=== PATIENT | male | born 1945 | race Asian ===

== ENCOUNTER 2022-08-21 23:35 | Inpatient (IN) | payer OTHER, MEDICAID ==
[~2022-08-21] VITALS: Ht 172.7 cm; Wt 61.2 kg
[2022-08-21 23:41] VITALS: BP 112/66
--- NOTE | 2022-08-21 23:43 | NUR ---
Patient taken to bed 1.
--- NOTE | 2022-08-21 23:55 | NUR ---
Dr. Reed examining patient.
[2022-08-22] MEDS ORDERED: NACL 0.9% 1,000 ML IV ONE
[2022-08-22] MEDS ORDERED: ACETAMINOPHEN EXTRA STRENGTH 500 MG TAB PO ONE
[2022-08-22] MEDS ORDERED: MAGN400S60 PO (00:07)
[2022-08-22] MEDS ORDERED: [UNRECOGNIZED DRUG - CODE] PO (00:07)
[2022-08-22] MEDS ORDERED: DOCU-299 PO (00:07)
[2022-08-22] MEDS ORDERED: BENA20TA PO (00:07)
[2022-08-22] MEDS ORDERED: METO25TA PO (00:07)
[2022-08-22] MEDS ORDERED: METO25TE2 PO (00:07)
[2022-08-22] MEDS ORDERED: BISA-213 RC (00:07)
[2022-08-22] MEDS ORDERED: GEMF600T5 PO (00:07)
[2022-08-22] MEDS ORDERED: HYDR25TA32 PO (00:07)
[2022-08-22 00:17] LABS: BASOPHILS % (AUTO) 0.3 % (0.0-2.0); EOSINOPHILS % (AUTO) 0.6 % (0.0-4.0); HEMATOCRIT 44.9 % (36-52); HEMOGLOBIN 15.2 g/dL (12.0-18.0); LYMPHOCYTES # (AUTO) 1.2 K/uL (2.0-11.5); MEAN CORPUSCULAR HEMOGLOBIN 34 pg (27-31); MEAN CORPUSCULAR HGB CONC 34 g/dL (33-37); MEAN CORPUSCULAR VOLUME 101.7 fL (80-94); MONOCYTES # (AUTO) 0.7 K/uL (0.8-1.0); MONOCYTES % (AUTO) 10.2 % (1.7-9.3); NEUTROPHILS # (AUTO) 5.2 K/uL (1.8-7.7); NEUTROPHILS % (AUTO) 71.9 % (42.2-75.2); PLATELET COUNT (AUTO) 238 K/uL (140-450); RED BLOOD CELL COUNT(AUTO) 4.42 MIL/uL (4.20-6.10); RED CELL DISTRIBUTION WIDTH 13.7 % (11.6-13.7); WHITE BLOOD COUNT (AUTO) 7.3 K/uL (4.8-10.8)
[2022-08-22 00:20] LABS: APPEARANCE,URINE CLEAR (CLEAR); BILIRUBIN,URINE NEGATIVE (NEGATIVE); BLOOD, URINE 1+ (NEGATIVE); COLOR,URINE YELLOW (YELLOW); LEUKOCYTE ESTERASE ,URINE 1+ (NEGATIVE); NITRITE, URINE NEGATIVE (NEGATIVE); PH,URINE 5.5 (5.0-9.0); UGLUCOSE NEGATIVE (NEGATIVE)
--- NOTE | 2022-08-22 00:22 | NUR ---
PT IS KHMER AND NEPALI SPEAKER. HE IS AWKE AND ALERT COMPLANING PAIN IN SUPRABIC AREA. 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 ROOM AND ABLE TO MOVE WITH WALKER. PT HAS A CRUZ
[2022-08-22 00:35] LABS: ALBUMIN 3.7 g/dL (3.4-5.0); ANION GAP 12.8 (8-16); ASPARTATE AMINOTRANSFERASE 17 U/L (15-37); CARBON DIOXIDE 31.1 mmol/L (21-32); CHLORIDE 97 mmol/L (98-107); GLUCOSE 98 mg/dL (74-106); LIPASE 245 U/L (73-393); POTASSIUM 3.9 mmol/L (3.5-5.1); SODIUM SERUM 137 mmol/L (136-145); TOTAL BILIRUBIN 0.8 mg/dL (0.0-1.0); UREA NITROGEN, BLOOD 33 mg/dL (7-18)
[2022-08-22] MEDS ORDERED: cefTRIAXone 1,000 MG VIAL ONE (00:45)
--- NOTE | 2022-08-22 03:00 | NUR ---
CHANGED AND CLEANED THE PATIENT. NO WOUND IS NOTED.
[2022-08-22 04:25] VITALS: BP 129/81
--- NOTE | 2022-08-22 04:32 | NUR ---
Patient will be admitted to care of [facility]. Admited to [facility]. Will go to room 105. Belongings list completed. Report to RG RIBERA.
--- NOTE | 2022-08-22 04:40 | NUR ---
RECEIVED REPORT FROM ER NURSE EDGAR. PT ARRIVED VIA GURNEY. PT AWAKE, ALERT AND ORIENTED X 3. INDONESIAN SPEAKING, CAN SPEAK AND UNDERSTAND JAPANESE.PT ON ROOM AIR, BREATHING EQUAL AND UNLABORED. NO COMPLAINS OF PAIN. SUPRAPUBIC CATHETER IN PLACE, DRAINING CLEAR YELLOW URINE. SKIN IS INTACT. MRSA SWAB DONE. ORIENTED TO CALL LIGHT.ALL PRECAUTIONS IN PLACE. CALL LIGHT WITHIN REACH. WILL CONTINUE TO MONITOR.
[2022-08-22] MEDS ORDERED: MORPHINE SULFATE 2 MG/ML SYR IVP PRN ×2 (04:50→07:30)
--- NOTE | 2022-08-22 07:03 | NUR ---
PT IS STABLE. NO ACUTE EVENTS THROUGHOUT THE NIGHT.ALL NEEDS ATTENDED. NO S/SX OF DISTRESS NOTED.ALL PRECAUTIONS IN PLACE. CALL LIGHT WITHIN REACH. WILL ENDORSE TO DAY SHIFT RN.
--- NOTE | 2022-08-22 07:10 | NUR ---
RECEIVED PT FROM SUPERVISOR LENS GENERATING NURSE FOR CONTINUITY OF CARE. PT IN BED ASLEEP. VISIBLE CHEST RISE AND FALL. RESPIRATIONS EVEN AND UNLABORED. NO DISTRESS NOTED. SUPRAPUBIC CATH IN PLACE DRAINING. IV ON R F/A 20G. CALL LIGHT WITHIN REACH. ALL SAFETY PRECAUTIONS IN PLACE.
[2022-08-22] MEDS ORDERED: LORazepam 2 MG/ML VIAL IVP PRN (07:30)
[2022-08-22] MEDS ORDERED: MAG SULF 2000 MG/WATER PREMIX 50 ML IV PRN (07:30)
[2022-08-22] MEDS ORDERED: DOCUSATE SODIUM 100 MG GELCAP PO PRN (07:30)
[2022-08-22] MEDS ORDERED: ONDANSETRON 4 MG/2 ML VIAL IVP PRN (07:30)
[2022-08-22] MEDS ORDERED: ACETAMINOPHEN 325 MG TAB PO PRN (07:30)
[2022-08-22] MEDS ORDERED: POTASSIUM CHLORIDE 10 MEQ TABER PO PRN (07:30)
[2022-08-22] MEDS ORDERED: ZOLPIDEM 10 MG TAB PO PRN (07:30)
[2022-08-22 08:00] VITALS: BP 115/74
[2022-08-22] MEDS: DOCUSATE SODIUM 100 MG GELCAP PO SCH ×3 (09:00→20:47)
[2022-08-22] MEDS ORDERED: METOPROLOL 25 MG TAB PO SCH (09:00)
[2022-08-22] MEDS: hydroCHLOROthiazide 25 MG TAB PO SCH (09:25)
--- NOTE | 2022-08-22 10:00 | NUR ---
PATIENT HAS BEEN SCREENED AND CATEGORIZED LOW NUTRITION RISK. PATIENT WILL BE SEEN WITHIN 7 DAYS OF ADMISSION. 08/22/22-08/29/[address]
--- NOTE | 2022-08-22 11:43 | NUR ---
MAKING ROUNDS. PT IN BED AWAKE. NURSE ASSISTED PT TO REPOSITION.
[2022-08-22 16:00] VITALS: BP 121/70
--- NOTE | 2022-08-22 18:55 | NUR ---
CALLED [facility] SPOKE TO HOLDEN RIBERA. I EXPLAINED THAT PT WANTS TO TAKE HIS CARBIDOPA LEVODOPA MEDICATION AND HOW [facility] DOES NOT CARRY CARBIDOPA LEVODOPA 25/ 250 MG. EXPLAINED THAT PT BRAD, FAMILY FRIEND "APOLLO" IS ABLE TO [place] [facility] MEDICATION FROM HIS FACILITY AND BRING TO PATIENT HERE.
--- NOTE | 2022-08-22 19:17 | NUR ---
ENDORSED PT TO PRODUCTION SUPERVISOR OFF SHIFT NURSE FOR CONTINUITY OF CARE. PT IN STABLE CONDITION.
--- NOTE | 2022-08-22 19:20 | NUR ---
RECEIVED PT SLEEPING, OPEN EYES TO TOUCH, AAOX3, ABLE TO MAKE NEEDS KNOWN, DENIES ANY PAIN, NO SOB NOTED, SUPRAPUBIC CATHETER IN PLACE TO GRAVITY WITH CLEAR YELLOW URINE OUTPUT, SAFETY MEASURES IN PLACE, CALL LIGHT WITHIN REACH.
[2022-08-22 20:00] VITALS: BP 133/81
--- NOTE | 2022-08-23 00:45 | NUR ---
DUE ROCEPHIN IVPB ADMINISTERED, NO SIGNS OF PAIN OR SOB, CONTINUE TO MONITOR CLOSELY.
[2022-08-23 04:00] VITALS: BP 107/76
--- NOTE | 2022-08-23 05:30 | NUR ---
PT SLEEPING, NO SIGNS OF DISTRESS, SUPRAPUBIC CATHETER OUTPUT OF 700ML NOTED, MONITORED CLOSELY.
--- NOTE | 2022-08-23 07:07 | NUR ---
PT SLEEPING, NO SIGNS OF DISTRESS, REPORT GIVEN TO JOHN FOR CONTINUITY OF CARE.
--- NOTE | 2022-08-23 07:07 | NUR ---
ASSUMED CONTINUITY OF CARE. NO SIGNS AND SYMPTOMS OF ACUTE DISTRESS NOTED. INITIAL ASSESSMENT DONE. FALL PRECAUTION APPLIED CALL LIGHT WITHIN REACH.
[2022-08-23 07:18] LABS: ANION GAP 12.5 (8-16); CARBON DIOXIDE 33.1 mmol/L (21-32); CHLORIDE 97 mmol/L (98-107); CREATININE 0.9 mg/dL (0.6-1.3); GLUCOSE 94 mg/dL (74-106); POTASSIUM 3.6 mmol/L (3.5-5.1); SODIUM SERUM 139 mmol/L (136-145); UREA NITROGEN, BLOOD 19 mg/dL (7-18)
[2022-08-23 07:25] LABS: BASOPHILS % (AUTO) 0.4 % (0.0-2.0); EOSINOPHILS % (AUTO) 0.4 % (0.0-4.0); HEMATOCRIT 47.3 % (36-52); HEMOGLOBIN 15.9 g/dL (12.0-18.0); LYMPHOCYTES % (AUTO) 11.8 % (20.5-51.1); MEAN CORPUSCULAR HEMOGLOBIN 34 pg (27-31); MEAN CORPUSCULAR HGB CONC 34 g/dL (33-37); MEAN CORPUSCULAR VOLUME 101.7 fL (80-94); MONOCYTES # (AUTO) 0.8 K/uL (0.8-1.0); MONOCYTES % (AUTO) 9.5 % (1.7-9.3); NEUTROPHILS # (AUTO) 6.3 K/uL (1.8-7.7); NEUTROPHILS % (AUTO) 77.9 % (42.2-75.2); PLATELET COUNT (AUTO) 239 K/uL (140-450); RED BLOOD CELL COUNT(AUTO) 4.65 MIL/uL (4.20-6.10); RED CELL DISTRIBUTION WIDTH 13.7 % (11.6-13.7); WHITE BLOOD COUNT (AUTO) 8.1 K/uL (4.8-10.8)
[2022-08-23 08:00] VITALS: BP 111/74
[2022-08-23] MEDS: hydroCHLOROthiazide 25 MG TAB PO SCH (08:35)
[2022-08-23] MEDS: CARBIDOPA/LEVODOPA 25/250 MG 1 TAB PO SCH ×3 (08:36→17:06)
[2022-08-23] MEDS: DOCUSATE SODIUM 100 MG GELCAP PO SCH ×2 (08:36→21:33)
[2022-08-23] MEDS ORDERED: COMMUNICATION ORDER MC SCH (09:00)
[2022-08-23] MEDS: CHLORHEXADINE GLUC 2% CLOTH TP SCH (12:00)
--- NOTE | 2022-08-23 12:00 | NUR ---
DISCHARGE PLANNING PATIENT IS A 76 YEAR OLD MALE ADMITTED TO THE [facility]/ED ON 08/22/2022 DUE TO UTI. SW ATTEMPTED TO MEET WITH PATIENT TO COLLECT AND GATHER HIS COLLATERAL INFORMATION PATIENT WAS NOT ALERT AND AWAKE. SW LEFT ROOM AND ATTEMPTED TO CONTACT PATIENT'S POA EDDA SANTOS , SHE DID NOT ANSWER THE CALL. JERICHO LEFT HER A MSG WITH REQUEST FOR A CALL BACK. JERICHO CALL [facility] AT SPOKE TO BABITA FROM ADMINISTRATION WHO REPORTED THAT PATIENT WAS PLACED TO THEIR FACILITY SINCE 08/16/2022. PER BABITA PATIENT COMES FROM HOME IS UNDER A SKILLS BED HOLD FOR ANTIBIOTICS AND P.T. PER BABITA PATIENT HAS A.D. AND HIS EDDA SANTOS IS INVOLVED ON HIS CARE AND IS PATIENT'S POA. PER BABITA PATIENT HAS A WALKER AND HIS DISCHARGE PLAN IS TO GO BACK TO [facility] WHEN HE IS READY AND STABLE TO DISCHARGE. JERICHO/NINFA WILL FOLLOW UP NEEDED.
[2022-08-23] MEDS: MUPIROCIN CA NASAL 2% 1GM TUBE NS SCH (13:11)
[2022-08-23 16:00] VITALS: BP 109/71
--- NOTE | 2022-08-23 19:19 | NUR ---
RECEIVED ENDORSEMENT FROM DAY SHIFT NURSE FOR CONTINUITY OF CARE. PT IS AWAKE, ALERT X2. PT IS ON ROOM AIR, ABLE TO VERBALIZED NEEDS. PT IS MEDSURG. SALINE LOCK ON RIGHT FOREARM 22g INTACT AND PATENT. SKIN INTACT. PT CONSUMED 100% OF HIS DINNER TRAY.
--- NOTE | 2022-08-23 19:20 | NUR ---
BEDSIDE REPORT GIVEN TO BERKLEY. SITTING ON BED EATING DINNER AT THIS TIME. IN STABLE CONDITION.
--- NOTE | 2022-08-23 21:33 | NUR ---
PT REFUSED COLACE. EXPLAINED RISK AND BENEFITS X 3, PT STILL REFUSED. PT STATED "TOMORROW I WILL TAKE IT, I DON'T WANT TO HAVE POPOO AT NIGHT TIME".
[2022-08-24] VITALS: BP 102/66
--- NOTE | 2022-08-24 00:22 | NUR ---
PT IS ASLEEP. NO SOB OR DISTRESS.
--- NOTE | 2022-08-24 07:18 | NUR ---
ASSUMED CONTINUITY OF CARE. INITIAL ASSESSMENT DONE. RE-ORIENTED TO EVENTS AND SURROUNDINGS. CONTACT AND FALL PRECAUTION APPLIED. CALL LIGHT WITHIN REACH.
[2022-08-24 07:39] LABS: ANION GAP 10.2 (8-16); CARBON DIOXIDE 34.9 mmol/L (21-32); CHLORIDE 97 mmol/L (98-107); GLUCOSE 100 mg/dL (74-106); POTASSIUM 3.1 mmol/L (3.5-5.1); SODIUM SERUM 139 mmol/L (136-145); UREA NITROGEN, BLOOD 21 mg/dL (7-18)
[2022-08-24 07:43] LABS: BASOPHILS % (AUTO) 0.7 % (0.0-2.0); EOSINOPHILS % (AUTO) 0.9 % (0.0-4.0); HEMATOCRIT 42.7 % (36-52); HEMOGLOBIN 14.9 g/dL (12.0-18.0); LYMPHOCYTES # (AUTO) 1.5 K/uL (2.0-11.5); LYMPHOCYTES % (AUTO) 29.8 % (20.5-51.1); MEAN CORPUSCULAR HEMOGLOBIN 35 pg (27-31); MEAN CORPUSCULAR HGB CONC 35 g/dL (33-37); MONOCYTES # (AUTO) 0.7 K/uL (0.8-1.0); MONOCYTES % (AUTO) 12.9 % (1.7-9.3); NEUTROPHILS # (AUTO) 2.9 K/uL (1.8-7.7); NEUTROPHILS % (AUTO) 55.7 % (42.2-75.2); PLATELET COUNT (AUTO) 228 K/uL (140-450); RED BLOOD CELL COUNT(AUTO) 4.27 MIL/uL (4.20-6.10); RED CELL DISTRIBUTION WIDTH 13.5 % (11.6-13.7); WHITE BLOOD COUNT (AUTO) 5.2 K/uL (4.8-10.8)
[2022-08-24 08:00] VITALS: BP 124/78
--- NOTE | 2022-08-24 08:00 | NUR ---
Patient's Plan of Care was discussed and reviewed with IMPROVEMENT ANALYST: JOHN JOHN
[2022-08-24] MEDS: CARBIDOPA/LEVODOPA 25/250 MG 1 TAB PO SCH ×3 (08:53→17:37)
[2022-08-24] MEDS: hydroCHLOROthiazide 25 MG TAB PO SCH (08:53)
[2022-08-24] MEDS: DOCUSATE SODIUM 100 MG GELCAP PO SCH ×2 (08:54→20:56)
[2022-08-24] MEDS: POTASSIUM CHLORIDE 20% 40 MEQ/15 ML UDC PO PRN (08:54)
[2022-08-24] MEDS ORDERED: IV Rocephin IV (11:31)
[2022-08-24] MEDS: MUPIROCIN CA NASAL 2% 1GM TUBE NS SCH (12:33)
[2022-08-24] MEDS: CHLORHEXADINE GLUC 2% CLOTH TP SCH (12:33)
[2022-08-24 16:00] VITALS: BP 102/70
--- NOTE | 2022-08-24 19:15 | NUR ---
REPORT GIVEN TO JORGE CISNEROS. IN STABLE CONDITION.
--- NOTE | 2022-08-24 19:16 | NUR ---
RECEIVED ENDORSEMENT FROM DAY SHIFT NURSE FOR CONTINUITY OF CARE. PT IS AWAKE, ALERT AND ABLE TO VERBALIZED NEEDS. SKIN INTACT. SUPRA PUBIC CATH IS INTACT AND PATENT, DRAINING DOWN YELLOW CLEAR TO THE BAG. IV SALINE LOCK INTACT. CONTINUE MONITORING.
--- NOTE | 2022-08-24 20:59 | NUR ---
PT REFUSED NIGHT MEDICATION COLACE, PT STATED HE WOULD TAKE THE PILL TOMORROW MORNING. HE DOES NOT WANT TO GO BM AT NIGHT TIME. EXPLAINED RISKS AND BENEFITS X 3, PT STILL REFUSE MED.
--- NOTE | 2022-08-24 23:00 | NUR ---
PT IS SLEEPING, CALM AND RELAX ON BED. NO SOB OR DISTRESS.
--- NOTE | 2022-08-25 01:00 | NUR ---
EARLY AM IV MEDICATION, PT AWAKEN AND COOPERATIVE. PT THEN BACK TO SLEEP. NO SOB OR DISTRESS.
--- NOTE | 2022-08-25 03:00 | NUR ---
PT IS ASLEEP AND ON STABLE CONDITION.
[2022-08-25 07:16] LABS: BASOPHILS % (AUTO) 0.6 % (0.0-2.0); EOSINOPHILS # (AUTO) 0.1 K/uL (0-0.4); HEMATOCRIT 41.7 % (36-52); HEMOGLOBIN 14.6 g/dL (12.0-18.0); LYMPHOCYTES # (AUTO) 1.4 K/uL (2.0-11.5); LYMPHOCYTES % (AUTO) 22.7 % (20.5-51.1); MEAN CORPUSCULAR HEMOGLOBIN 35 pg (27-31); MEAN CORPUSCULAR HGB CONC 35 g/dL (33-37); MEAN CORPUSCULAR VOLUME 98.9 fL (80-94); MONOCYTES # (AUTO) 0.6 K/uL (0.8-1.0); MONOCYTES % (AUTO) 10.1 % (1.7-9.3); NEUTROPHILS % (AUTO) 65.6 % (42.2-75.2); PLATELET COUNT (AUTO) 215 K/uL (140-450); RED BLOOD CELL COUNT(AUTO) 4.21 MIL/uL (4.20-6.10); RED CELL DISTRIBUTION WIDTH 13.5 % (11.6-13.7); WHITE BLOOD COUNT (AUTO) 6.2 K/uL (4.8-10.8)
[2022-08-25 07:47] LABS: ANION GAP 11.2 (8-16); CARBON DIOXIDE 30.9 mmol/L (21-32); CHLORIDE 99 mmol/L (98-107); CREATININE 0.7 mg/dL (0.6-1.3); GLUCOSE 100 mg/dL (74-106); POTASSIUM 3.1 mmol/L (3.5-5.1); SODIUM SERUM 138 mmol/L (136-145); UREA NITROGEN, BLOOD 21 mg/dL (7-18)
[2022-08-25 08:00] VITALS: BP 140/83
[2022-08-25] MEDS: DOCUSATE SODIUM 100 MG GELCAP PO SCH (09:00)
[2022-08-25] MEDS: CARBIDOPA/LEVODOPA 25/250 MG 1 TAB PO SCH ×2 (09:57→12:49)
[2022-08-25] MEDS: hydroCHLOROthiazide 25 MG TAB PO SCH (09:57)
[2022-08-25] MEDS: MUPIROCIN CA NASAL 2% 1GM TUBE NS SCH (12:49)
[2022-08-25] MEDS: POTASSIUM CHLORIDE 20% 40 MEQ/15 ML UDC PO PRN (12:50)
[2022-08-25] MEDS: CHLORHEXADINE GLUC 2% CLOTH TP SCH (12:50)
--- NOTE | 2022-08-25 14:45 | NUR ---
DC PLANNING PT HAS DC ORDER, PACKET FAXED OVER TO [facility] AWAITING ROOM NUMBER Addendum: 08/25/22 at 1602 by Devin Gilman SS PT ACCEPTED TO ROOM 24A ACCEPTING DR WOODS, CALL REPORT NUMBER [phone]. FIELDED CALL FROM ANETTE WITH [facility] WHO REPORTS TRANSPORTATION ARRANGED WITH SAUMYA, . AUTH [id number]. RN DOCUMENTATION TIME 5PM. ENDORSED TO CHARGE NURSE.
[2022-08-25 16:00] VITALS: BP 122/67
[2022-08-25 17:14] VITALS: BP 121/75
== END 2022-08-25 17:40 | DRG 690 ==
LOC: MED 23:35 → MMU 08-22 03:20 → MTU 08-22 04:04
PROVIDERS: ADMIT Family Medicine; ATTEND Family Medicine
DX: N39.0 Urinary tract infection, site not specified (principal); N40.1 Benign prostatic hyperplasia with lower urinary tract symptoms; N13.8 Other obstructive and reflux uropathy; E87.6 Hypokalemia; E86.0 Dehydration; I10 Essential (primary) hypertension; Z66 Do not resuscitate; Z20.822 Contact with and (suspected) exposure to COVID-19; G20 Parkinson's disease; F02.80 Dementia in other diseases classified elsewhere, unspecified severity, without behavioral disturbance, psychotic disturbance, mood disturbance, and anxiety; Z93.50 Unspecified cystostomy status; N20.0 Calculus of kidney
CPT/HCPCS: 36415; 71045; 80048; 80053; 81001; 83605; 83690; 83735; 85025; 87040; 87081; 87086; 96374; 97110; 97116; 97163-GP; 97530; 99285; J0696; J7060; Q0092

== ENCOUNTER 2022-09-28 02:34 | Emergency (ER) | payer OTHER ==
[~2022-09-28] VITALS: Ht 162.6 cm; Wt 64.4 kg
[~2022-09-28 02:34] MED LIST: BENA20TA PO; BISA-213 RC; DOCU-299 PO; GEMF600T5 PO; HYDR25TA32 PO; IV Rocephin IV; MAGN400S60 PO; METO25TA PO; [UNRECOGNIZED DRUG - CODE] PO
--- NOTE | 2022-09-28 02:36 | NUR ---
Pt is here for evaluation with abd pain 9/10 from extended care. He is awake and oriented x 4. PT is DNR modiefied in the polst. Room air.
--- NOTE | 2022-09-28 02:37 | NUR ---
Patient BIB by CAM from [facility]. C/O abdominal pain x today. Patient taken to bed 11.
[2022-09-28] MEDS ORDERED: MORPHINE SULFATE 4 MG/ML SYR IVP ONE (02:55)
[2022-09-28] MEDS ORDERED: NACL 0.9% 1,000 ML IV ONE (02:55)
[2022-09-28 02:56] VITALS: BP 158/76
[2022-09-28 03:19] LABS: BASOPHILS % (AUTO) 0.5 % (0.0-2.0); EOSINOPHILS % (AUTO) 0.6 % (0.0-4.0); HEMATOCRIT 42.7 % (36-52); HEMOGLOBIN 14.9 g/dL (12.0-18.0); LYMPHOCYTES # (AUTO) 1.2 K/uL (2.0-11.5); LYMPHOCYTES % (AUTO) 22.7 % (20.5-51.1); MEAN CORPUSCULAR HEMOGLOBIN 35 pg (27-31); MEAN CORPUSCULAR HGB CONC 35 g/dL (33-37); MEAN CORPUSCULAR VOLUME 99.2 fL (80-94); MONOCYTES # (AUTO) 0.7 K/uL (0.8-1.0); MONOCYTES % (AUTO) 14.3 % (1.7-9.3); NEUTROPHILS # (AUTO) 3.2 K/uL (1.8-7.7); NEUTROPHILS % (AUTO) 61.9 % (42.2-75.2); PLATELET COUNT (AUTO) 194 K/uL (140-450); RED BLOOD CELL COUNT(AUTO) 4.31 MIL/uL (4.20-6.10); RED CELL DISTRIBUTION WIDTH 13.1 % (11.6-13.7); WHITE BLOOD COUNT (AUTO) 5.2 K/uL (4.8-10.8)
[2022-09-28 03:20] LABS: APPEARANCE,URINE CLEAR (CLEAR); BILIRUBIN,URINE NEGATIVE (NEGATIVE); BLOOD, URINE NEGATIVE (NEGATIVE); COLOR,URINE YELLOW (YELLOW); NITRITE, URINE POSITIVE (NEGATIVE); PH,URINE 6.5 (5.0-9.0); UGLUCOSE NEGATIVE (NEGATIVE)
[2022-09-28 03:24] LABS: LEUKOCYTE ESTERASE ,URINE 3+ (NEGATIVE)
[2022-09-28 03:29] LABS: RBC,URINE 0-5 /HPF (0-5); WBC,URINE >25 (MANY) /HPF (0-5)
[2022-09-28 03:41] LABS: ALBUMIN 4.3 g/dL (3.4-5.0); ANION GAP 12.3 (8-16); ASPARTATE AMINOTRANSFERASE 17 U/L (15-37); CARBON DIOXIDE 32.2 mmol/L (21-32); CHLORIDE 97 mmol/L (98-107); CREATININE 1.1 mg/dL (0.6-1.3); GLUCOSE 109 mg/dL (74-106); LIPASE 170 U/L (73-393); POTASSIUM 4.5 mmol/L (3.5-5.1); SODIUM SERUM 137 mmol/L (136-145); TOTAL BILIRUBIN 0.6 mg/dL (0.0-1.0); UREA NITROGEN, BLOOD 22 mg/dL (7-18)
[2022-09-28] MEDS ORDERED: SULFAMETH/TRIMETH DS 800/160MG 1 TAB PO ONE (04:50)
[2022-09-28] MEDS ORDERED: SULF-59 PO (05:28)
--- NOTE | 2022-09-28 07:15 | NUR ---
Assumed care of pt at this time
--- NOTE | 2022-09-28 08:45 | NUR ---
Pt is resting in [facility], able to reposition self. All safety measures in place
--- NOTE | 2022-09-28 12:15 | NUR ---
Pt received lunch tray. Assisted to sit up and is eating independently
--- NOTE | 2022-09-28 14:30 | NUR ---
Pt picked up from transportation services and confirmed pt information and destination. Pt made aware. Facility was already made aware of pt return as well
[2022-09-28 14:32] VITALS: BP 120/70
--- NOTE | 2022-09-29 16:26 | NUR ---
LATE ENTRY -- CONFIRMED WITH NURSE, NS INFUSION COMPLETED AT [id number] 09/28/22
--- NOTE | 2022-10-01 19:00 | NUR ---
LATE ENTRY. RECEIVED POSITIVE URINE CULTURE. FORM GIVEN TO DR COREY. CALLED HARSHAA NURSE AT [facility] TO INFORM THEM OF POSITIVE RESULT AND THAT REQUESTED A RE-EVALUATION. FAXED RESULTS TO [phone]. FORM PLACED IN BINDER
== END 2022-09-28 14:32 ==
LOC: MED 02:34
DX: N39.0 Urinary tract infection, site not specified (principal); T83.030A Leakage of cystostomy catheter, initial encounter; F03.90 Unspecified dementia, unspecified severity, without behavioral disturbance, psychotic disturbance, mood disturbance, and anxiety
CPT/HCPCS: 36415; 51705; 74177; 80053; 81001; 83605; 83690; 84484; 85025; 87040; 87086; 96361; 96374; 99285; J2270; Q9967; J7030

== ENCOUNTER 2022-10-08 00:15 | Inpatient (IN) | payer OTHER ==
[~2022-10-08] VITALS: Ht 175.3 cm; Wt 63.0 kg
[~2022-10-08 00:15] MED LIST changes: -IV Rocephin IV; +SULF-59 PO
[2022-10-08 00:22] VITALS: BP 151/118
--- NOTE | 2022-10-08 00:22 | NUR ---
PT [facility] ER BED 2
--- NOTE | 2022-10-08 00:26 | NUR ---
pt was sent from extended care of [facility] he was altered and shaking. His blood sugar initially was 27 and dental professional got him dextrose fluid. I checked the blood sugar he is 147. he has brumfield and urine color is sort of mix with some residual
[2022-10-08] MEDS ORDERED: NACL 0.9% 1,000 ML IV ONE ×2 (00:30→01:45)
[2022-10-08 01:15] LABS: BASOPHILS % (AUTO) 0.2 % (0.0-2.0); HEMATOCRIT 41.3 % (36-52); HEMOGLOBIN 14.4 g/dL (12.0-18.0); LYMPHOCYTES # (AUTO) 0.4 K/uL (2.0-11.5); LYMPHOCYTES % (AUTO) 4.8 % (20.5-51.1); MEAN CORPUSCULAR HEMOGLOBIN 35 pg (27-31); MEAN CORPUSCULAR HGB CONC 35 g/dL (33-37); MEAN CORPUSCULAR VOLUME 98.7 fL (80-94); MONOCYTES # (AUTO) 0.5 K/uL (0.8-1.0); MONOCYTES % (AUTO) 6.3 % (1.7-9.3); NEUTROPHILS # (AUTO) 7.1 K/uL (1.8-7.7); PLATELET COUNT (AUTO) 234 K/uL (140-450); RED BLOOD CELL COUNT(AUTO) 4.19 MIL/uL (4.20-6.10); RED CELL DISTRIBUTION WIDTH 13.1 % (11.6-13.7)
[2022-10-08 01:31] LABS: ANION GAP 15.4 (8-16); ASPARTATE AMINOTRANSFERASE 33 U/L (15-37); CARBON DIOXIDE 25.2 mmol/L (21-32); CHLORIDE 95 mmol/L (98-107); CREATININE 2.3 mg/dL (0.6-1.3); GLUCOSE 60 mg/dL (74-106); POTASSIUM 3.6 mmol/L (3.5-5.1); SODIUM SERUM 132 mmol/L (136-145); TOTAL BILIRUBIN 0.3 mg/dL (0.0-1.0); UREA NITROGEN, BLOOD 50 mg/dL (7-18)
[2022-10-08 01:54] LABS: NEUTROPHILS % (AUTO) 88.7 % (42.2-75.2)
[2022-10-08] MEDS ORDERED: cefTRIAXone 1,000 MG VIAL ONE (02:15)
--- NOTE | 2022-10-08 02:30 | NUR ---
pt has mac martinez and when I asked him a question he is not resposive. i notified the
[2022-10-08 02:35] LABS: APPEARANCE,URINE CLEAR (CLEAR); BILIRUBIN,URINE NEGATIVE (NEGATIVE); BLOOD, URINE NEGATIVE (NEGATIVE); COLOR,URINE YELLOW (YELLOW); LEUKOCYTE ESTERASE ,URINE TRACE (NEGATIVE); NITRITE, URINE NEGATIVE (NEGATIVE); PH,URINE 5.5 (5.0-9.0); UGLUCOSE TRACE (NEGATIVE)
[2022-10-08] MEDS ORDERED: DEXTROSE 10% 1,000 ML IV ONE (02:40)
[2022-10-08] MEDS ORDERED: DEXTROSE 50% 50 ML SYR IVP ONE ×2 (02:41→03:00)
--- NOTE | 2022-10-08 02:42 | NUR ---
Checked his blood sugar and was 44
[2022-10-08 02:51] LABS: RBC,URINE 0-5 /HPF (0-5); WBC,URINE 0-5 /HPF (0-5)
[2022-10-08 02:52] LABS: URIC ACID CRYSTALS,URINE 0-10 /HPF (None Seen)
--- NOTE | 2022-10-08 03:00 | NUR ---
rechecked blood sugar it was 101
--- NOTE | 2022-10-08 03:05 | NUR ---
snack was provided with some juice
[2022-10-08] MEDS ORDERED: DEXT 5% / NACL 0.9% 1,000 ML IV ONE (05:20)
--- NOTE | 2022-10-08 06:33 | NUR ---
check blood sugar pt is 22
--- NOTE | 2022-10-08 06:33 | NUR ---
pt is alert and asnwers question, juice is provided.
[2022-10-08] MEDS: DEXTROSE 50% 50 ML SYR IVP PRN ×3 (07:31→14:45)
[2022-10-08] MEDS: BLOOD GLUCOSE MONITORING 1 DEV DEV FS SCH ×4 (07:32→20:33)
[2022-10-08] MEDS ORDERED: POTASSIUM CHLORIDE 10 MEQ TABER PO PRN (10:10)
[2022-10-08] MEDS ORDERED: ZOLPIDEM 5 MG TAB PO PRN (10:10)
[2022-10-08] MEDS ORDERED: ACETAMINOPHEN 325 MG TAB PO PRN (10:10)
[2022-10-08] MEDS ORDERED: guaiFENesin DM 200/20 MG-10 ML 10 ML UDC PO PRN (10:10)
[2022-10-08] MEDS ORDERED: ONDANSETRON 4 MG/2 ML VIAL IM/IVP PRN (10:10)
[2022-10-08] MEDS ORDERED: DOCUSATE SODIUM 100 MG GELCAP PO PRN (10:10)
[2022-10-08] MEDS ORDERED: HYDROcodone/APAP 7.5/325 MG 1 TAB PO PRN (10:10)
[2022-10-08] MEDS: DEXT 5% /NACL 0.9% 1,000 ML IV SCH ×2 (11:05→20:15)
[2022-10-08 11:15] LABS: PROTHROMBIN TIME 10.3 secs (10.8-13.4)
[2022-10-08 12:01] LABS: CHOL/HDL RATIO 2.2 (1-4.5); FREE T4 (FREE THYROXINE) 0.66 ng/dL (0.76-1.46); MAGNESIUM 2.3 mg/dL (1.8-2.4); PHOSPHORUS 2.5 mg/dL (2.5-4.9); THYROID STIMULATING HORMONE 0.85 uIU/mL (0.34-3.74)
[2022-10-08] MEDS ORDERED: CARBIDOPA PO SCH (13:00)
[2022-10-08] MEDS ORDERED: LEVODOPA PO SCH (13:00)
[2022-10-08] MEDS: CARBIDOPA/LEVODOPA 25/250 MG 1 TAB PO SCH ×2 (15:26→17:32)
--- NOTE | 2022-10-08 19:31 | NUR ---
PT IN BED RESTING, ALERT AND RESPONDED WHEN OFFERED LIQUIDS AND FOOD.
--- NOTE | 2022-10-08 20:00 | NUR ---
pt tolerated food well, resting in room on night monitor. awake and alert.
[2022-10-08] MEDS: DEXTROSE 10% 1,000 ML IV SCH (20:32)
[2022-10-08] MEDS: METOPROLOL 25 MG TAB PO SCH (21:00)
--- NOTE | 2022-10-08 22:46 | NUR ---
RECEIVED PT FROM ED [employer]IA [employer]. PT IS AWAKE, ALERT AND VERBALLY RESPONSIVE. PT IS ADMISTTED TO [facility] WITH CHIEFT COMPLAINTSW OF HYPOGLYCEMIA. PT IS WITH DIAGNOSIS : HYPOGLYCEMIA, UTI & SEPSIS. PT IS FORGETFUL WITH NO KN OWN ALLERGY. DIET IS REGULAR. IV SITE IS AT RIGHT HAND 20G WITH D10 AT 100ML/HR.
--- NOTE | 2022-10-08 22:50 | NUR ---
Patient will be admitted to care of Dr. Rodriguez. Admited to tele. Will go to room 107A. Belongings list completed. Report to Pham RIBERA.
[2022-10-08] MEDS: gemfibroziL 600 MG TAB PO SCH (22:59)
--- NOTE | 2022-10-08 23:15 | NUR ---
PT BLOOD SUGAR = 54. ORANGE JUICE AND PUDING ADMINISTERED.
--- NOTE | 2022-10-09 00:15 | NUR ---
BLOOD SUGAR CHECKED = 77.
[2022-10-09] MEDS ORDERED: cefTRIAXone 1,000 MG VIAL ONE (03:24)
[2022-10-09 04:00] VITALS: BP 99/61
[2022-10-09] MEDS: DEXTROSE 10% 1,000 ML IV SCH ×2 (05:20→15:33)
--- NOTE | 2022-10-09 06:30 | NUR ---
BLOOD SUGAR = 63. OFFERED PT ORANGE JUICE AND PUDDING. PT REFUSED AND STATED THAT HE IS SLEEPY AND WANTS TO SLEEP, PT STATED HE WILL DRINK ORANGE JUICE WHEN HE AWAKES, NOW IS TOO COLD. IV FLUID D10 IS INFUSING AT 100ML/HR.
[2022-10-09] MEDS: BLOOD GLUCOSE MONITORING 1 DEV DEV FS SCH ×4 (07:30→21:41)
[2022-10-09 07:32] LABS: ANION GAP 10.5 (8-16); CARBON DIOXIDE 26.4 mmol/L (21-32); CHLORIDE 103 mmol/L (98-107); CREATININE 0.8 mg/dL (0.6-1.3); GLUCOSE 62 mg/dL (74-106); POTASSIUM 3.9 mmol/L (3.5-5.1); SODIUM SERUM 136 mmol/L (136-145); UREA NITROGEN, BLOOD 13 mg/dL (7-18)
[2022-10-09 07:39] LABS: BASOPHILS % (AUTO) 0.4 % (0.0-2.0); EOSINOPHILS % (AUTO) 0.4 % (0.0-4.0); HEMATOCRIT 36.6 % (36-52); HEMOGLOBIN 12.7 g/dL (12.0-18.0); LYMPHOCYTES # (AUTO) 1.2 K/uL (2.0-11.5); LYMPHOCYTES % (AUTO) 19.9 % (20.5-51.1); MEAN CORPUSCULAR HEMOGLOBIN 34 pg (27-31); MEAN CORPUSCULAR HGB CONC 35 g/dL (33-37); MEAN CORPUSCULAR VOLUME 98.7 fL (80-94); MONOCYTES # (AUTO) 0.7 K/uL (0.8-1.0); MONOCYTES % (AUTO) 11.7 % (1.7-9.3); NEUTROPHILS # (AUTO) 4.2 K/uL (1.8-7.7); NEUTROPHILS % (AUTO) 67.6 % (42.2-75.2); PLATELET COUNT (AUTO) 192 K/uL (140-450); RED BLOOD CELL COUNT(AUTO) 3.71 MIL/uL (4.20-6.10); RED CELL DISTRIBUTION WIDTH 13.3 % (11.6-13.7); WHITE BLOOD COUNT (AUTO) 6.2 K/uL (4.8-10.8)
[2022-10-09 08:00] VITALS: BP 134/84
[2022-10-09 08:06] LABS: T4 (THYROXINE) 4.6 ug/dL (4.5-12.0)
--- NOTE | 2022-10-09 08:06 | NUR ---
GOT REPORT FROM THE NIGHT NURSE, PT SLEEPING NO SOB.[id number]
--- NOTE | 2022-10-09 08:46 | NUR ---
PATIENT HAS BEEN SCREENED AND CATEGORIZED MODERATE NUTRITION RISK. PATIENT WILL BE SEEN WITHIN 3-5 DAYS OF ADMISSION. 10/08/22-10/13/[address]
[2022-10-09] MEDS: DEXT 5% /NACL 0.9% 1,000 ML IV SCH ×2 (09:00→16:15)
[2022-10-09] MEDS: METOPROLOL 25 MG TAB PO SCH ×2 (09:11→21:00)
[2022-10-09] MEDS: PANTOPRAZOLE 40 MG TABEC PO SCH (09:11)
[2022-10-09] MEDS: BENAZEPRIL 20 MG TAB PO SCH (09:11)
[2022-10-09] MEDS: gemfibroziL 600 MG TAB PO SCH ×2 (09:11→21:39)
[2022-10-09] MEDS: hydroCHLOROthiazide 25 MG TAB PO SCH (09:11)
[2022-10-09] MEDS: CARBIDOPA/LEVODOPA 25/250 MG 1 TAB PO SCH ×3 (09:28→17:36)
[2022-10-09 12:00] VITALS: BP 86/49
[2022-10-09 16:00] VITALS: BP 86/49
[2022-10-09 16:33] VITALS: BP 94/47
--- NOTE | 2022-10-09 19:21 | NUR ---
RECEIVED REPORT FROM DAY SHIFT NURSE IVELISSE FOR CONTINUITY OF CARE. PT AWAKE IN BED. ON PIPING SUPERVISOR. RESPIRATIONS EVEN AND UNLABORED ON RA. NO DISTRESS NOTED. DENIES PAIN. SUPRAPUBIC CATHETER IN PLACE INTACT DRAINING CLEAR YELLOW URINE. SKIN INTACT, WARM AND DRY TO TOUCH. IV SITE ON LFA 22G, INFUSING IVF. POC DISCUSSED WITH THE PT AND MOUNIKA HOWARD. CALL LIGHT WITHIN REACH. SAFETY PRECAUTIONS IN PLACE. Addendum: 10/10/22 at 0157 by Charlee Oliveira LVN IVF RUNNING D10 AT 100ML/HR. PER MOUNIKA OVIEDO IVF CONFIRMED WITH DR ROSARIO TO RUN D10, GOAL IS TO HAVE BS ABOVE 100.
[2022-10-09 20:00] VITALS: BP_SYST 78; BP_SYST 79; BP_DIAS 43; BP_DIAS 50
--- NOTE | 2022-10-09 20:45 | NUR ---
BP 78/50, PLACED PT ON TRENDELERNBERG POSITION BUT STILL BP LOW. INFORMED DR ROSARIO. RECEIVED ORDER 2L NS BOLUS, IF NOT IMPROVED TRANSFER TO ICU AND START LEVOPHED. ORDERS NOTED AND CARRIED OUT. PT CLOSELY MONITORED.
[2022-10-09] MEDS: NACL 0.9% 1,000 ML, NACL 0.9% 1,000 ML IV SCH ×2 (21:39→22:55)
[2022-10-10] VITALS: BP 117/76
--- NOTE | 2022-10-10 00:05 | NUR ---
DONE WITH 2L BOLUS. BP RE-ASSESSED. 117/76.
[2022-10-10] MEDS: NACL 0.9% 1,000 ML, NACL 0.9% 1,000 ML IV SCH (00:47)
[2022-10-10] MEDS: DEXTROSE 10% 1,000 ML IV SCH ×3 (01:20→21:20)
[2022-10-10] MEDS: DEXT 5% /NACL 0.9% 1,000 ML IV SCH ×2 (02:15→12:15)
[2022-10-10 04:00] VITALS: BP 105/66
--- NOTE | 2022-10-10 05:36 | NUR ---
DID MORNING CARE. PT TOLERATED WELL. DRAINED 2800CC OF URINE FROM SUPRAPUBIC CATHETER. PT REMAINED CLEAN AND DRY. V/S WITHIN NORMAL LIMIT. NO DISTRESS NOTED.
[2022-10-10] MEDS: BLOOD GLUCOSE MONITORING 1 DEV DEV FS SCH ×4 (06:50→21:00)
--- NOTE | 2022-10-10 07:22 | NUR ---
GAVE BEDSIDE REPORT TO MOUNIKA OVIEDO FOR CONTINUITY OF CARE. ALL NEEDS MET THROUGHOUT SHIFT. PT IN STABLE CONDITION.
[2022-10-10 07:25] LABS: BASOPHILS % (AUTO) 0.9 % (0.0-2.0); EOSINOPHILS % (AUTO) 0.8 % (0.0-4.0); HEMATOCRIT 37.8 % (36-52); HEMOGLOBIN 13.2 g/dL (12.0-18.0); LYMPHOCYTES # (AUTO) 1.1 K/uL (2.0-11.5); LYMPHOCYTES % (AUTO) 22.2 % (20.5-51.1); MEAN CORPUSCULAR HEMOGLOBIN 35 pg (27-31); MEAN CORPUSCULAR HGB CONC 35 g/dL (33-37); MONOCYTES # (AUTO) 0.7 K/uL (0.8-1.0); NEUTROPHILS # (AUTO) 3.1 K/uL (1.8-7.7); NEUTROPHILS % (AUTO) 62.1 % (42.2-75.2); PLATELET COUNT (AUTO) 204 K/uL (140-450); RED BLOOD CELL COUNT(AUTO) 3.78 MIL/uL (4.20-6.10); RED CELL DISTRIBUTION WIDTH 13.3 % (11.6-13.7)
[2022-10-10 07:30] LABS: ANION GAP 11.3 (8-16); CARBON DIOXIDE 25.7 mmol/L (21-32); CHLORIDE 103 mmol/L (98-107); CREATININE 0.8 mg/dL (0.6-1.3); GLUCOSE 121 mg/dL (74-106); SODIUM SERUM 136 mmol/L (136-145); UREA NITROGEN, BLOOD 11 mg/dL (7-18)
--- NOTE | 2022-10-10 07:39 | NUR ---
GOT REPORT FROM NIGHT NURSE, PT AWAKE WANTS THE PANT, NO SOB, IV INFUSING ORDERED.[email or web address]
[2022-10-10 08:00] VITALS: BP 133/69
[2022-10-10] MEDS: gemfibroziL 600 MG TAB PO SCH ×2 (09:16→20:44)
[2022-10-10] MEDS: METOPROLOL 25 MG TAB PO SCH ×2 (09:17→20:44)
[2022-10-10] MEDS: PANTOPRAZOLE 40 MG TABEC PO SCH (09:19)
[2022-10-10] MEDS: CARBIDOPA/LEVODOPA 25/250 MG 1 TAB PO SCH ×3 (09:19→17:23)
[2022-10-10] MEDS: hydroCHLOROthiazide 25 MG TAB PO SCH (09:20)
[2022-10-10] MEDS: BENAZEPRIL 20 MG TAB PO SCH (09:21)
[2022-10-10 12:00] VITALS: BP 113/54
--- NOTE | 2022-10-10 14:25 | NUR ---
DC PLANNING SW ATTEMPTED TO COMPLETE ASSESSMENT AT BEDSIDE HOWEVER PT STRUGGLED TO ENGAGE OR ANSWER ASSESSMENT PROMPTS. OUTREACHED TO [facility] TO GATHER COLLATERAL INFORMATION HOWEVER, ADMIN CURRENTLY ON HOLIDAY.
[2022-10-10 16:00] VITALS: BP 121/68
[2022-10-10 20:00] VITALS: BP 124/64
--- NOTE | 2022-10-10 22:43 | NUR ---
pt is resting after his evening med , he watched tv for short time, now no discomfort iv infusing as ordered Kingston catheter in place. [email or web address]
--- NOTE | 2022-10-10 23:40 | NUR ---
RECEIVED PT. FROM MOUNIKA OVIEDO FOR CONTINUITY OF CARE. PER REPORT PT. AOX3. ON ROOM AIR. SINUS RHYTHM ON THE MONITOR. ON REGULAR DIET. PT. IV TO LEFT ARM 20G LINE PATENT AND INTACT, INFUSING DEXTROSE 10% RUNNING AT 100 ML/HR. SKIN INTACT. PT. SLEEPING AT THIS TIME. NO S/S OF PAIN NOTED. PROVIDED SAFE AND QUIET ENVIRONMENT.
--- NOTE | 2022-10-10 23:42 | NUR ---
REPORT GIVEN TO THE REAMER HAND [email or web address]
[2022-10-11] VITALS: BP 105/59
[2022-10-11 04:00] VITALS: BP 97/59
[2022-10-11] MEDS: BLOOD GLUCOSE MONITORING 1 DEV DEV FS SCH ×4 (06:46→16:43)
[2022-10-11] MEDS: DEXTROSE 10% 1,000 ML IV SCH ×2 (06:47→16:59)
[2022-10-11 07:06] LABS: BASOPHILS % (AUTO) 0.9 % (0.0-2.0); EOSINOPHILS # (AUTO) 0.1 K/uL (0-0.4); EOSINOPHILS % (AUTO) 2.2 % (0.0-4.0); HEMATOCRIT 38.7 % (36-52); HEMOGLOBIN 13.5 g/dL (12.0-18.0); LYMPHOCYTES # (AUTO) 1.1 K/uL (2.0-11.5); LYMPHOCYTES % (AUTO) 27.2 % (20.5-51.1); MEAN CORPUSCULAR HEMOGLOBIN 34 pg (27-31); MEAN CORPUSCULAR HGB CONC 35 g/dL (33-37); MEAN CORPUSCULAR VOLUME 98.2 fL (80-94); MONOCYTES # (AUTO) 0.6 K/uL (0.8-1.0); NEUTROPHILS # (AUTO) 2.3 K/uL (1.8-7.7); NEUTROPHILS % (AUTO) 54.7 % (42.2-75.2); PLATELET COUNT (AUTO) 225 K/uL (140-450); RED BLOOD CELL COUNT(AUTO) 3.94 MIL/uL (4.20-6.10); RED CELL DISTRIBUTION WIDTH 13.1 % (11.6-13.7); WHITE BLOOD COUNT (AUTO) 4.1 K/uL (4.8-10.8)
[2022-10-11 07:30] LABS: ANION GAP 10.1 (8-16); CARBON DIOXIDE 31.4 mmol/L (21-32); CHLORIDE 99 mmol/L (98-107); CREATININE 0.9 mg/dL (0.6-1.3); GLUCOSE 163 mg/dL (74-106); POTASSIUM 3.5 mmol/L (3.5-5.1); SODIUM SERUM 137 mmol/L (136-145); UREA NITROGEN, BLOOD 8 mg/dL (7-18)
--- NOTE | 2022-10-11 07:34 | NUR ---
RECIEVED PATIENT FROM HOME SERVICE DIRECTOR NURSE.PATIENT IS SLEEPING ON BED,CHEST RISING AND FALLING EVENLY.NO SIGNS OF DISTRESS NOTED.ALL SAFETY MEASURES IN PLACE.WILL CONTINUE TO MONITOR.
[2022-10-11 08:00] VITALS: BP 98/66
[2022-10-11] MEDS: gemfibroziL 600 MG TAB PO SCH (08:24)
[2022-10-11] MEDS: PANTOPRAZOLE 40 MG TABEC PO SCH (08:24)
[2022-10-11] MEDS: CARBIDOPA/LEVODOPA 25/250 MG 1 TAB PO SCH ×3 (08:25→16:44)
[2022-10-11] MEDS: METOPROLOL 25 MG TAB PO SCH (08:25)
[2022-10-11] MEDS: hydroCHLOROthiazide 25 MG TAB PO SCH (09:00)
[2022-10-11] MEDS: BENAZEPRIL 20 MG TAB PO SCH (09:00)
[2022-10-11 12:00] VITALS: BP 98/50
[2022-10-11] MEDS ORDERED: PIPERACILLIN/TAZOBACTAM 3.375 GM in DEXTROSE 5% 50 ML IV SCH (13:00)
--- NOTE | 2022-10-11 15:42 | NUR ---
DC PLANNING: PATIENT HAS A DC ORDER TO RETURN TO [facility] . CALLED AND FAXED ALL PAPERWORK TO [facility]. PER BABITA PATIENT CAN GO TO ROOM 39A # TO GIVE REPORT [phone] ARRANGED TRANSPORT WITH [facility] [employer] GR[employer] MATHEMATICS TEACHER TIME 1800. NOTIFIED ARACELI JACKSON CM TO FOLLOW
[2022-10-11 16:00] VITALS: BP 99/63
--- NOTE | 2022-10-11 18:37 | NUR ---
DISHARGE ORDER RECIEVED ,DISCHARGED THE PATIENT TO [facility],GAVE REPORT TO [facility],PATIENT GOING TO ROOM NO 39A.DISCHARGE PACKET GIVEN WITH DISCHARGE ORDERS.
== END 2022-10-11 18:25 | DRG 871 ==
LOC: MED 00:15 → MTU 05:20
PROVIDERS: ADMIT Family Medicine; ATTEND Family Medicine
DX: A41.9 Sepsis, unspecified organism (principal); G93.41 Metabolic encephalopathy; N17.0 Acute kidney failure with tubular necrosis; N39.0 Urinary tract infection, site not specified; E87.1 Hypo-osmolality and hyponatremia; E16.2 Hypoglycemia, unspecified; Z20.822 Contact with and (suspected) exposure to COVID-19; B96.5 Pseudomonas (aeruginosa) (mallei) (pseudomallei) as the cause of diseases classified elsewhere; E86.0 Dehydration; I10 Essential (primary) hypertension; G20 Parkinson's disease; Z93.50 Unspecified cystostomy status
CPT/HCPCS: 36415; 71045; 80048; 80053; 81001; 82150; 82948; 83036; 83605; 83690; 83735; 83880; 84100; 84436; 84439; 84443; 84479; 85025; 85610; 85730; 87040; 87081; 87086; 96374; 96375; 99291; J0696; J2543; J7060; Q0092

== ENCOUNTER 2022-11-03 07:39 | Emergency (ER) | payer OTHER ==
[~2022-11-03] VITALS: Ht 157.5 cm; Wt 52.2 kg
[~2022-11-03 07:39] MED LIST changes: -BENA20TA PO; -BISA-213 RC; -DOCU-299 PO; -GEMF600T5 PO; -HYDR25TA32 PO; -MAGN400S60 PO; -SULF-59 PO
[2022-11-03 07:47] VITALS: BP 160/80
--- NOTE | 2022-11-03 07:55 | NUR ---
AMBULANCE 1.
--- NOTE | 2022-11-03 08:07 | NUR ---
BIBA BLS TAKEN TO BED 8
--- NOTE | 2022-11-03 08:15 | NUR ---
MD PEDRO AT BEDSIDE FOR EVALUATION
[2022-11-03] MEDS ORDERED: NACL 0.9% 1,000 ML IV ONE (08:20)
--- NOTE | 2022-11-03 08:31 | NUR ---
280 ML FROM URINE BAG.
--- NOTE | 2022-11-03 09:00 | NUR ---
76YO MALE PT BIBA [facility] C/O POSSIBLE SUPRAPUBIC CATH OBSTRUCTION XTODAY. PER [facility], FACILITY PT W/O URINE OUTPUT X12HRS. AT ARRIVAL , 280ML YELLOW CLOUDY URINE NOTED AND COLLECTED FROM URINE BAG. PT DENIES PAIN, N/V/D, FEVR OR CHILLS. PT AAOX3, ON FIRE CHIEF'S AIDE. HX: HTN, PARKINSONS, DIMENTIA NKA
[2022-11-03 09:27] LABS: APPEARANCE,URINE CLOUDY (CLEAR); BILIRUBIN,URINE NEGATIVE (NEGATIVE); BLOOD, URINE 3+ (NEGATIVE); COLOR,URINE YELLOW (YELLOW); LEUKOCYTE ESTERASE ,URINE 3+ (NEGATIVE); NITRITE, URINE POSITIVE (NEGATIVE); UGLUCOSE NEGATIVE (NEGATIVE)
[2022-11-03 09:34] LABS: RBC,URINE 11-20 (MOD) /HPF (0-5); WBC,URINE 80-100 /HPF (0-5)
--- NOTE | 2022-11-03 09:36 | NUR ---
LAB AT BEDSIDE
[2022-11-03 09:42] LABS: BASOPHILS # (AUTO) 0.1 K/uL (0.00-0.22); BASOPHILS % (AUTO) 1.2 % (0.0-2.0); EOSINOPHILS # (AUTO) 0.1 K/uL (0-0.4); EOSINOPHILS % (AUTO) 1.1 % (0.0-4.0); HEMOGLOBIN 13.4 g/dL (12.0-18.0); LYMPHOCYTES # (AUTO) 1.4 K/uL (2.0-11.5); LYMPHOCYTES % (AUTO) 26.1 % (20.5-51.1); MEAN CORPUSCULAR HEMOGLOBIN 34 pg (27-31); MEAN CORPUSCULAR HGB CONC 33 g/dL (33-37); MEAN CORPUSCULAR VOLUME 101.5 fL (80-94); MONOCYTES # (AUTO) 0.5 K/uL (0.8-1.0); MONOCYTES % (AUTO) 9.1 % (1.7-9.3); NEUTROPHILS # (AUTO) 3.3 K/uL (1.8-7.7); NEUTROPHILS % (AUTO) 62.5 % (42.2-75.2); PLATELET COUNT (AUTO) 219 K/uL (140-450); RED BLOOD CELL COUNT(AUTO) 3.94 MIL/uL (4.20-6.10); RED CELL DISTRIBUTION WIDTH 14.1 % (11.6-13.7); WHITE BLOOD COUNT (AUTO) 5.2 K/uL (4.8-10.8)
[2022-11-03 09:54] LABS: ANION GAP 9.6 (8-16); CARBON DIOXIDE 30.3 mmol/L (21-32); CHLORIDE 102 mmol/L (98-107); CREATININE 0.8 mg/dL (0.6-1.3); GLUCOSE 92 mg/dL (74-106); POTASSIUM 4.9 mmol/L (3.5-5.1); SODIUM SERUM 137 mmol/L (136-145); UREA NITROGEN, BLOOD 12 mg/dL (7-18)
--- NOTE | 2022-11-03 12:20 | NUR ---
pt provided w/ lunch. pt awake, repositioned and eating in bed
--- NOTE | 2022-11-03 12:53 | NUR ---
S/W CINTHIA AT [facility], REPORT GIVEN AND NOTIFIED PATIENT WILL BE RETURNING BACK TO FACILITY.
--- NOTE | 2022-11-03 12:53 | NUR ---
[facility] BEDSIDE FOR TRANSPORT BACK TO [facility].
[2022-11-03 12:57] VITALS: BP 147/60
--- NOTE | 2022-11-03 12:57 | NUR ---
Patient discharged with v/s stable. Written and verbal after care instructions FOR SUPRAPUBIC CATH HOME CARE given and explained. Patient verbalized understanding. [facility] All questions addressed prior to discharge. Advised to follow up with PMD.
--- NOTE | 2022-11-03 13:43 | NUR ---
The patient's care was reviewed and supervised by Citlali See RN.
== END 2022-11-03 15:27 | disposition home or self-care (01) ==
LOC: MED 07:39
DX: Z03.89 Encounter for observation for other suspected diseases and conditions ruled out (principal); F03.90 Unspecified dementia, unspecified severity, without behavioral disturbance, psychotic disturbance, mood disturbance, and anxiety; Z86.69 Personal history of other diseases of the nervous system and sense organs; Z79.899 Other long term (current) drug therapy
CPT/HCPCS: 36415; 80048; 81001; 85025; 87086; 96360; 99285; J7030

== ENCOUNTER 2023-03-16 20:53 | Inpatient (IN) | payer OTHER ==
[~2023-03-16] VITALS: Ht 165.1 cm; Wt 40.8 kg
[2023-03-16 20:53] VITALS: BP 122/60; PULSE 78; RESP 16; TEMP 98; O2SAT 94
[~2023-03-16 20:53] MED LIST changes: +PYR100 PO; +SULF-59 PO
--- NOTE | 2023-03-16 20:59 | NUR ---
PT BIBA TO BED 11
--- NOTE | 2023-03-16 21:05 | NUR ---
Pt BIB ALS from Facility for catheter replacement via rney. Conscious. Involuntary movement noted. On diaper. AAOx3
[2023-03-16 21:58] LABS: BASOPHILS % (AUTO) 0.2 % (0.0-2.0); EOSINOPHILS # (AUTO) 0.1 K/uL (0-0.4); HEMATOCRIT 38.2 % (36-52); LYMPHOCYTES # (AUTO) 1.2 K/uL (2.0-11.5); LYMPHOCYTES % (AUTO) 11.9 % (20.5-51.1); MEAN CORPUSCULAR HEMOGLOBIN 34 pg (27-31); MEAN CORPUSCULAR HGB CONC 34 g/dL (33-37); MEAN CORPUSCULAR VOLUME 100.4 fL (80-94); MONOCYTES # (AUTO) 1.1 K/uL (0.8-1.0); MONOCYTES % (AUTO) 11.5 % (1.7-9.3); NEUTROPHILS # (AUTO) 7.5 K/uL (1.8-7.7); NEUTROPHILS % (AUTO) 75.4 % (42.2-75.2); PLATELET COUNT (AUTO) 141 K/uL (140-450); RED BLOOD CELL COUNT(AUTO) 3.81 MIL/uL (4.20-6.10); RED CELL DISTRIBUTION WIDTH 13.7 % (11.6-13.7); WHITE BLOOD COUNT (AUTO) 9.9 K/uL (4.8-10.8)
[2023-03-16 22:09] LABS: ANION GAP 15.3 (8-16); CARBON DIOXIDE 25.3 mmol/L (21-32); CHLORIDE 103 mmol/L (98-107); CREATININE 3.7 mg/dL (0.6-1.3); GLUCOSE 84 mg/dL (74-106); POTASSIUM 4.6 mmol/L (3.5-5.1); SODIUM SERUM 139 mmol/L (136-145); UREA NITROGEN, BLOOD 45 mg/dL (7-18)
--- NOTE | 2023-03-16 22:30 | NUR ---
Blood Samples taken [employer] on BS.
[2023-03-16] MEDS ORDERED: cefTRIAXone 1,000 MG VIAL ONE (22:48)
--- NOTE | 2023-03-16 23:00 | NUR ---
IV access established on Left wrist with G20.
[2023-03-16] MEDS ORDERED: NACL 0.9% 1,500 ML IV ONE (23:15)
--- NOTE | 2023-03-16 23:25 | NUR ---
Suprapubic Bladder Catheter changed by ERMD.
[2023-03-16] MEDS ORDERED: POTASSIUM CHLORIDE 10 MEQ TABER PO PRN (23:30)
[2023-03-16] MEDS ORDERED: HYDROcodone/APAP 7.5/325 MG 1 TAB PO PRN (23:30)
[2023-03-16] MEDS ORDERED: DOCUSATE SODIUM 100 MG GELCAP PO PRN (23:30)
[2023-03-16] MEDS ORDERED: ZOLPIDEM 5 MG TAB PO PRN (23:30)
[2023-03-16] MEDS ORDERED: guaiFENesin DM 200/20 MG-10 ML 10 ML UDC PO PRN (23:30)
[2023-03-16] MEDS ORDERED: ACETAMINOPHEN 325 MG TAB PO PRN (23:30)
[2023-03-16] MEDS ORDERED: ONDANSETRON 4 MG/2 ML VIAL IM/IVP PRN (23:30)
--- NOTE | 2023-03-16 23:35 | NUR ---
Patient will be admitted to care of Dr. HICKS. Will go to room 107B. Belongings list completed. Report to MOUNIKA chávez.
[2023-03-17] VITALS (8 sets, daily range): BP systolic 91–107; BP diastolic 53–67; PULSE 50–74; RESP 18; TEMP 96.8–98.4; O2SAT 94–100
[2023-03-17 00:30] LABS: APPEARANCE,URINE CLEAR (CLEAR); BILIRUBIN,URINE 1+ (NEGATIVE); BLOOD, URINE 2+ (NEGATIVE); COLOR,URINE YELLOW (YELLOW); LEUKOCYTE ESTERASE ,URINE 3+ (NEGATIVE); NITRITE, URINE POSITIVE (NEGATIVE); UGLUCOSE TRACE (NEGATIVE)
--- NOTE | 2023-03-17 00:32 | NUR ---
Pt positioned to rt side to check wound and take photos and no open wound seen on his buttocks.
--- NOTE | 2023-03-17 00:49 | NUR ---
Bloods taken on bedside by Scientific Informatics Leader.
--- NOTE | 2023-03-17 00:52 | NUR ---
Pt transffered to [facility] via [facility] with MOUNIKA Marx and EMT Eric.
--- NOTE | 2023-03-17 01:00 | NUR ---
RECEIVED PT FROM ER VIA [facility]. PT IS AWAKE AND ALERT. PRIMARY LANGUAGE SLOVAK. KNOWS SOME SERBIAN. PT NOT IN ANY DISTRESS. BREATHING EVEN AND UNLABORED. UNABLE TO AMBULATE. PT CAME IN FOR DECREASE URINE OUTPUT ON CRUZ CATHETER. NEW CRUZ CATH PLACED ON 03/16. PT HAS LEFT WRIST 20 GAUGE. SALINE LOCK AT THIS TIME. EDUCATED PT METAL CNC OPERATOR LIGHT SYSTEM. ROOM ENVIRONMENT. CALL LIGHT WITHIN REACH. POC DISCUSSED. WILL CONTINUE TO MONITOR THE PT.
[2023-03-17 01:20] LABS: ALBUMIN 3.2 g/dL (3.4-5.0); ANION GAP 15.2 (8-16); ASPARTATE AMINOTRANSFERASE 23 U/L (15-37); CARBON DIOXIDE 25.4 mmol/L (21-32); CHLORIDE 105 mmol/L (98-107); GLUCOSE 81 mg/dL (74-106); POTASSIUM 4.6 mmol/L (3.5-5.1); SODIUM SERUM 141 mmol/L (136-145); TOTAL BILIRUBIN 0.6 mg/dL (0.0-1.0); UREA NITROGEN, BLOOD 41 mg/dL (7-18)
[2023-03-17] MEDS: NACL 0.9% 1,000 ML IV SCH ×2 (03:18→17:06)
--- NOTE | 2023-03-17 03:30 | NUR ---
OBSERVED PT. PT IS SLEEPING COMFORTABLY IN BED. NOT IN ANY DISTRESS. BREATHING EVEN AND UNLABORED. CALL LIGHT WITHIN REACH. WILL CONTINUE TO MONITOR THE PT.
[2023-03-17 06:12] LABS: BASOPHILS % (AUTO) 0.6 % (0.0-2.0); EOSINOPHILS # (AUTO) 0.2 K/uL (0-0.4); EOSINOPHILS % (AUTO) 2.2 % (0.0-4.0); HEMATOCRIT 36.2 % (36-52); HEMOGLOBIN 12.4 g/dL (12.0-18.0); LYMPHOCYTES # (AUTO) 1.1 K/uL (2.0-11.5); LYMPHOCYTES % (AUTO) 15.1 % (20.5-51.1); MEAN CORPUSCULAR HEMOGLOBIN 34 pg (27-31); MEAN CORPUSCULAR HGB CONC 34 g/dL (33-37); MEAN CORPUSCULAR VOLUME 100.3 fL (80-94); MONOCYTES # (AUTO) 0.8 K/uL (0.8-1.0); MONOCYTES % (AUTO) 11.2 % (1.7-9.3); NEUTROPHILS # (AUTO) 4.9 K/uL (1.8-7.7); NEUTROPHILS % (AUTO) 70.9 % (42.2-75.2); PLATELET COUNT (AUTO) 147 K/uL (140-450); RED BLOOD CELL COUNT(AUTO) 3.61 MIL/uL (4.20-6.10); RED CELL DISTRIBUTION WIDTH 13.6 % (11.6-13.7)
[2023-03-17 06:47] LABS: ALBUMIN 2.9 g/dL (3.4-5.0); ANION GAP 11.9 (8-16); ASPARTATE AMINOTRANSFERASE 25 U/L (15-37); CHLORIDE 106 mmol/L (98-107); CREATININE 2.4 mg/dL (0.6-1.3); GLUCOSE 83 mg/dL (74-106); POTASSIUM 3.9 mmol/L (3.5-5.1); SODIUM SERUM 142 mmol/L (136-145); TOTAL BILIRUBIN 0.6 mg/dL (0.0-1.0); UREA NITROGEN, BLOOD 34 mg/dL (7-18)
--- NOTE | 2023-03-17 07:10 | NUR ---
ENDORSED PT TO DAY SHIFT NURSE FOR CONTINUITY OF CARE. PT IS STABLE.
--- NOTE | 2023-03-17 07:12 | NUR ---
RECEIVED BEDSIDE REPORT FROM VENDING SERVICE TECHNICIAN NURSE FOR CONTINUITY OF CARE, PT IS ASLEEP, AWAKEN BY NAME. NO SIGN OF DISTRESS.CALL LIGHT WITHIN REACH.
--- NOTE | 2023-03-17 09:19 | NUR ---
PATIENT HAS BEEN SCREENED AND CATEGORIZED HIGH NUTRITION RISK. PATIENT WILL BE SEEN WITHIN 1-2 DAYS OF ADMISSION. 03/17/23-03/18/23 REVIEWED BY GILLIAN FRANKLIN RD
[2023-03-17] MEDS: CARBIDOPA/LEVODOPA 25/250 MG 1 TAB PO SCH ×3 (10:37→17:05)
[2023-03-17] MEDS: PANTOPRAZOLE 40 MG TABEC PO SCH (10:38)
--- NOTE | 2023-03-17 12:56 | NUR ---
03/17/23 RD INITIAL ASSESSMENT COMPLETED PLEASE REFER TO NUTRITION ASSESSMENT UNDER CARE ACTIVITY FOR ESTIMATED NUTRITIONAL NEEDS. 1. CONTINUE NPO DIET TOLERATED. FOLLOW TEXTURE ORDER FROM SPEECH PATHOLOGIST PENDING SWALLOW EVALUATION. PLEASE ADD CARDIAC WITH SWALLOW EVALUATION ORDER OR ONCE MEDICALLY APPROPRIATE. 2. RD WILL CONTINUE TO MONITOR TEXTURE/PO INTAKE, WEIGHT/BMI, SKIN INTEGRITY AND NUTRITION RELATED LAB VALUES. 3. RD TO FOLLOW-UP 2-3 DAYS, HIGH RISK JOSEP BAGLEY RD
--- NOTE | 2023-03-17 13:00 | NUR ---
PT IS ASLEEP, WITH STABLE VITAL SIGNS, NO SIGN OF DISTRESS. CALL LIGHT WITHIN REACH.
--- NOTE | 2023-03-17 19:20 | NUR ---
GAVE REPORT TO C[place]AST FOR CONTINUITY OF CARE, PT IS STABLE , NO SIGN OF DISTRESS. CALL LIGHT WITHIN REACH.
--- NOTE | 2023-03-17 19:21 | NUR ---
RECEIVED ENDORSEMENT FROM JELENA RIBERA, PATIENT WAS ANXIOUS. NURSING GOT THE VOYCE TO SPEAK LUXEMBOURGISH BECAUSE PATIENT WAS VERY ANXIOUS. ROTARY PEEL OVEN TENDER CAROLANN [id number]. PATIENT WANTED TO REMOVE ALL MEDICAL DEVICES BUT WAS GIVEN PATIENT EDUCATION THE NEED FOR THE DEVICES TO HELP US KEEP HIM HEALTHY. PATIENT AGREED AND UNDERSTOOD. NO NOTED S/S OF BOWEL MOVEMENT. PATIENT DENIES ANY PAIN/DISCOMFORT. PATIENT WAS ABLE TO BREATH INDEPENDENTLY WITHOUT DISTRESS. CRUZ CATH WAS VISIBLE WITH YELLOW CLEAR FLUIDS. NO NOTED SEDIMENT. SIDE RAILS UP X 3 FOR SAFETY AND POSITIONING. BED ALARM WAS NOTED ON. PATIENT ALLOWED NURSING TO PUT BACK HIS TELE-MONITOR. CALL LIGHT WITHIN REACH. PATIENT WAS ABLE TO DEMONSTRATE HOW TO USE IT PROPERLY. [email or web address]
--- NOTE | 2023-03-17 23:00 | NUR ---
SLEEP PRN WAS EFFECTIVE. NO NOTED S/S OF SIDE EFFECTS NOTED. PATIENT WAS ABLE TO SLEEP PEACEFULLY. CHEST RISING AND FALLING WITHOUT INCIDENT OF DISTRESS. NO FACIAL GRIMACING OF PAIN/DISCOMFORT AT THIS TIME. SIDE RAILS UP X 3 CALL LIGHT WITHIN REACH. [email or web address]
[2023-03-18] VITALS: BP 104/57; PULSE 53; PULSE 57; RESP 18; TEMP 97; O2SAT 97
--- NOTE | 2023-03-18 01:52 | NUR ---
DURING ROUNDS, NURSING NOTED PATIENT WAS ASLEEP. CHEST WAS RISING AND FALLING WITHOUT INCIDENT. ALL NEEDS MET. PATIENT REMAINS CLEAN AND DRY. NO S/S OF PAIN/DISCOMFORT. SIDE RAILS UP X 3 CALL LIGHT WITHIN REACH. [email or web address]
[2023-03-18 04:00] VITALS: BP 117/65; PULSE 53; PULSE 67; RESP 18; TEMP 97.1; O2SAT 98
--- NOTE | 2023-03-18 05:02 | NUR ---
PATIENT WAS ASLEEP. CHEST WAS RISING AND FALLING WITHOUT INCIDENT. ALL NEEDS MET. PATIENT REMAINS CLEAN AND DRY. NO S/S OF PAIN/DISCOMFORT. SIDE RAILS UP X 3 CALL LIGHT WITHIN REACH. [email or web address]
[2023-03-18 06:27] LABS: BASOPHILS % (AUTO) 0.8 % (0.0-2.0); EOSINOPHILS # (AUTO) 0.4 K/uL (0-0.4); EOSINOPHILS % (AUTO) 6.2 % (0.0-4.0); HEMATOCRIT 34.9 % (36-52); LYMPHOCYTES # (AUTO) 0.8 K/uL (2.0-11.5); LYMPHOCYTES % (AUTO) 14.9 % (20.5-51.1); MEAN CORPUSCULAR HEMOGLOBIN 35 pg (27-31); MEAN CORPUSCULAR HGB CONC 34 g/dL (33-37); MEAN CORPUSCULAR VOLUME 100.6 fL (80-94); MONOCYTES # (AUTO) 0.8 K/uL (0.8-1.0); MONOCYTES % (AUTO) 13.8 % (1.7-9.3); NEUTROPHILS # (AUTO) 3.7 K/uL (1.8-7.7); NEUTROPHILS % (AUTO) 64.3 % (42.2-75.2); PLATELET COUNT (AUTO) 129 K/uL (140-450); RED BLOOD CELL COUNT(AUTO) 3.47 MIL/uL (4.20-6.10); RED CELL DISTRIBUTION WIDTH 13.1 % (11.6-13.7); WHITE BLOOD COUNT (AUTO) 5.7 K/uL (4.8-10.8)
--- NOTE | 2023-03-18 07:00 | NUR ---
ENDORSED CARE TO RENATA RN, PATIENT WAS STABLE DURING THE CHANGE OF SHIFT. ENDORSE PATIENT SHAKING D/T PARKINSON. [email or web address]
--- NOTE | 2023-03-18 07:15 | NUR ---
RECEIVED REPORT FROM CHIMNEY BUILDER BRICK NURSE FOR CONTINUITY OF CARE. PT STABLE AT THIS TIME.
[2023-03-18 07:48] LABS: ALBUMIN 2.7 g/dL (3.4-5.0); ANION GAP 12.3 (8-16); ASPARTATE AMINOTRANSFERASE 18 U/L (15-37); CARBON DIOXIDE 26.9 mmol/L (21-32); CHLORIDE 107 mmol/L (98-107); CREATININE 1.2 mg/dL (0.6-1.3); GLUCOSE 79 mg/dL (74-106); POTASSIUM 3.2 mmol/L (3.5-5.1); SODIUM SERUM 143 mmol/L (136-145); TOTAL BILIRUBIN 0.6 mg/dL (0.0-1.0); UREA NITROGEN, BLOOD 17 mg/dL (7-18)
[2023-03-18 08:00] VITALS: BP 126/65; PULSE 61; PULSE 62; RESP 16; TEMP 97.1; O2SAT 94
[2023-03-18] MEDS ORDERED: POTASSIUM CHLORIDE 40 MEQ, LIDOCAINE 1% 25 MG in NACL 0.9% 250 ML IV ONE (08:15)
[2023-03-18] MEDS: PANTOPRAZOLE 40 MG TABEC PO SCH (09:17)
[2023-03-18] MEDS: CARBIDOPA/LEVODOPA 25/250 MG 1 TAB PO SCH ×3 (09:17→17:19)
[2023-03-18] MEDS: NACL 0.9% 1,000 ML IV SCH (09:21)
[2023-03-18] MEDS ORDERED: POTASSIUM CHLORIDE 40 MEQ, LIDOCAINE 1% 25 MG in NACL 0.9% 250 ML IV SCH (10:00)
[2023-03-18 12:00] VITALS: BP 133/95; PULSE 59; PULSE 68; RESP 16; TEMP 97.9; O2SAT 98
[2023-03-18 16:00] VITALS: BP 123/55; PULSE 65; PULSE 66; RESP 18; TEMP 98.4; O2SAT 96
--- NOTE | 2023-03-18 16:42 | NUR ---
PT IS REFUSING TO ALLOW THE POLE LIFT OPERATOR TO CHANGE HIM.
--- NOTE | 2023-03-18 19:27 | NUR ---
ENDORSED TO SIGNAL APPRENTICE NURSE FOR CONTINUITY OF CARE. PT STABLE AT THIS TIME.
--- NOTE | 2023-03-18 19:27 | NUR ---
RECEIVED REPORT FROM DAY SHIFT NURSE. PT IS ON BED AWAKE, ALERT AND RESPONSIVE. TREMORS ON LIPS PRESENT AT THIS TIME. IV SITE IS ON RIGHT WRIST 20G WITH NORMAL SALINE INFUSING WELL AT 60 ML/HR. PT IS BED BOUND. CRUZ CATHETER INTACT AND PATENT, DRAINING CLEAR AND MODERATE CONCENTRATE URINE.
[2023-03-18 20:00] VITALS: BP 125/75; PULSE 63; PULSE 65; RESP 18; TEMP 36.6; O2SAT 95
[2023-03-19] VITALS: BP 132/75; PULSE 60; PULSE 61; RESP 18; TEMP 97.5; O2SAT 94
[2023-03-19] MEDS: NACL 0.9% 1,000 ML IV SCH (01:30)
--- NOTE | 2023-03-19 03:31 | NUR ---
PT SLEEPING WELL, NO SOB OR DISTRESS.
[2023-03-19 04:00] VITALS: BP 138/78; PULSE 57; PULSE 59; RESP 18; TEMP 97.6; O2SAT 97
--- NOTE | 2023-03-19 04:55 | NUR ---
PT REFUSED FOR PERSONAL HYGIENE.
[2023-03-19 06:39] LABS: EOSINOPHILS # (AUTO) 0.2 K/uL (0-0.4); EOSINOPHILS % (AUTO) 6.2 % (0.0-4.0); HEMATOCRIT 36.8 % (36-52); HEMOGLOBIN 12.7 g/dL (12.0-18.0); LYMPHOCYTES # (AUTO) 1.1 K/uL (2.0-11.5); LYMPHOCYTES % (AUTO) 29.5 % (20.5-51.1); MEAN CORPUSCULAR HEMOGLOBIN 34 pg (27-31); MEAN CORPUSCULAR HGB CONC 35 g/dL (33-37); MEAN CORPUSCULAR VOLUME 99.2 fL (80-94); MONOCYTES # (AUTO) 0.5 K/uL (0.8-1.0); NEUTROPHILS # (AUTO) 1.8 K/uL (1.8-7.7); NEUTROPHILS % (AUTO) 50.3 % (42.2-75.2); PLATELET COUNT (AUTO) 145 K/uL (140-450); RED BLOOD CELL COUNT(AUTO) 3.71 MIL/uL (4.20-6.10); RED CELL DISTRIBUTION WIDTH 13.3 % (11.6-13.7); WHITE BLOOD COUNT (AUTO) 3.7 K/uL (4.8-10.8)
[2023-03-19 07:03] LABS: ALBUMIN 2.9 g/dL (3.4-5.0); ANION GAP 10.6 (8-16); ASPARTATE AMINOTRANSFERASE 21 U/L (15-37); CARBON DIOXIDE 28.9 mmol/L (21-32); CHLORIDE 106 mmol/L (98-107); CREATININE 0.8 mg/dL (0.6-1.3); GLUCOSE 91 mg/dL (74-106); POTASSIUM 3.5 mmol/L (3.5-5.1); SODIUM SERUM 142 mmol/L (136-145); TOTAL BILIRUBIN 0.6 mg/dL (0.0-1.0); UREA NITROGEN, BLOOD 10 mg/dL (7-18)
--- NOTE | 2023-03-19 07:05 | NUR ---
RECEIVED REPORT FROM ELECTROPHYSIOLOGY TECHNICIAN NURSE FOR CONTINUITY OF CARE. PT STABLE AT THIS TIME.
[2023-03-19 08:00] VITALS: BP 134/73; PULSE 59; PULSE 65; RESP 16; TEMP 97.7; O2SAT 96
[2023-03-19] MEDS: CARBIDOPA/LEVODOPA 25/250 MG 1 TAB PO SCH ×3 (09:21→16:56)
[2023-03-19] MEDS: PANTOPRAZOLE 40 MG TABEC PO SCH (09:21)
--- NOTE | 2023-03-19 12:00 | NUR ---
CHECKED ON PATIENT HE WAS EATING HIS LUNCH AND TOOK HIS NOON MEDICATION.
[2023-03-19 16:00] VITALS: BP 129/75; PULSE 68; RESP 18; TEMP 97.7; O2SAT 97
--- NOTE | 2023-03-19 19:19 | NUR ---
ENDORSED PT TO AMMUNITION STOREKEEPER NURSE FOR CONTINUITY OF CARE. PT STABLE AT THIS TIME.
--- NOTE | 2023-03-19 19:20 | NUR ---
RECEIVED ENDORSEMENT FROM DAY SHIFT NURSE. PT IS ON BED, AWAKE, ALERT AND VERBALLY RESPONSIVE. SUPRA PUBIC CATHETER IS INTACT AND PATENT.
[2023-03-19 20:00] VITALS: BP 113/68; PULSE 64; RESP 17; TEMP 97.8; O2SAT 97
--- NOTE | 2023-03-19 20:07 | NUR ---
PT COMPLAINTS OF GENERAL BODY PAIN 01/28, PAIN MEDICATION NORCO ADMINISTERED.
--- NOTE | 2023-03-19 21:07 | NUR ---
PT IS ASLEEP, NO FACIAL GRIMACING.
[2023-03-20 04:00] VITALS: BP 144/79; PULSE 59; RESP 17; TEMP 97.3; O2SAT 94
--- NOTE | 2023-03-20 05:30 | NUR ---
PT IS SLEEPING WELL.
[2023-03-20 06:15] LABS: BASOPHILS % (AUTO) 1.1 % (0.0-2.0); EOSINOPHILS # (AUTO) 0.2 K/uL (0-0.4); EOSINOPHILS % (AUTO) 5.2 % (0.0-4.0); HEMATOCRIT 38.2 % (36-52); HEMOGLOBIN 13.2 g/dL (12.0-18.0); LYMPHOCYTES # (AUTO) 1.3 K/uL (2.0-11.5); LYMPHOCYTES % (AUTO) 36.3 % (20.5-51.1); MEAN CORPUSCULAR HEMOGLOBIN 34 pg (27-31); MEAN CORPUSCULAR HGB CONC 35 g/dL (33-37); MONOCYTES # (AUTO) 0.4 K/uL (0.8-1.0); MONOCYTES % (AUTO) 11.4 % (1.7-9.3); NEUTROPHILS # (AUTO) 1.7 K/uL (1.8-7.7); PLATELET COUNT (AUTO) 156 K/uL (140-450); RED BLOOD CELL COUNT(AUTO) 3.86 MIL/uL (4.20-6.10); RED CELL DISTRIBUTION WIDTH 13.4 % (11.6-13.7); WHITE BLOOD COUNT (AUTO) 3.6 K/uL (4.8-10.8)
[2023-03-20 06:41] LABS: ANION GAP 10.5 (8-16); ASPARTATE AMINOTRANSFERASE 20 U/L (15-37); CARBON DIOXIDE 28.1 mmol/L (21-32); CHLORIDE 104 mmol/L (98-107); CREATININE 0.6 mg/dL (0.6-1.3); GLUCOSE 95 mg/dL (74-106); POTASSIUM 3.6 mmol/L (3.5-5.1); SODIUM SERUM 139 mmol/L (136-145); TOTAL BILIRUBIN 0.6 mg/dL (0.0-1.0); UREA NITROGEN, BLOOD 8 mg/dL (7-18)
[2023-03-20 08:00] VITALS: BP 138/84; PULSE 70; RESP 18; TEMP 97.4; O2SAT 98
[2023-03-20] MEDS: PANTOPRAZOLE 40 MG TABEC PO SCH (08:27)
[2023-03-20] MEDS: CARBIDOPA/LEVODOPA 25/250 MG 1 TAB PO SCH ×3 (08:27→17:07)
--- NOTE | 2023-03-20 13:19 | NUR ---
03/20/23 RD FOLLOW UP COMPLETED PLEASE REFER TO NUTRITION ASSESSMENT UNDER CARE ACTIVITY FOR ESTIMATED NUTRITIONAL NEEDS. 1. CONTINUE MECHANICAL SOFT DIET TOLERATED 2. RD RECOMMENDS ENSURE PLUS TID DUE TO POOR PO INTAKE AND MALNUTRITION. THIS WILL PROVIDE 1,050 CALORIES AND 60 GRAMS OF PROTEIN. 3. RD TO FOLLOW-UP 2-3 DAYS, HIGH RISK JOSEP BAGLEY RD
--- NOTE | 2023-03-20 15:00 | NUR ---
AROUND 1500, PATIENT WAS VERY AGITATED AFTER PT THERAPY. PATIENT TRIED MULTIPLE TIME GET OUT THE BED AND TELLING NURSE THAT HE IS DOING EXERCISE. BECAUSE PATIENT'S SUPRAPUBIC CATHETER IS ATTACHED ON THE BED-FRAME, NURSE AFTER PATIENT PULL HIS CATHETER OUT; BUT PATIENT REFUSE TO GO BACK TO BED AND TALK BACK IN ITALIAN; THEREFORE, NURSE HAVE TO USE [employer]TON[employer]Valentine [employer]AT ENGINEER #[id number]... 'S SERVICE TO HELP CALM PATIENT DOWN.
--- NOTE | 2023-03-20 15:01 | NUR ---
DC PLANNING A 77 YEAR OLD MALE FAROESE SPEAKING PATIENT, A RESIDENT OF [facility] ADMITTED IN TELEMETRY FOR DECREASED URINARY OUTPUT FROM [facility].PATIENT WAS HERE 3 DAYS AGO FOR DYSURIA AND WAS DIAGNOSED WITH UTI.PATIENT HAS HX OF DEMENTIA,PARKINSON'S DISEASE ,HYPERLIPIDEMIA,OBSTRUCTIVE UROPATHY ,HTN,GERD AND PROSTATE ISSUE.ON CEFTRIAXONE.RENAL US SHOWS LEFT RENAL CYST MEASURING 3,2CM.PATIENT IS ALERT.PT EVAL REQUESTED.DC PLAN-BACK TO [facility] WHEN PATIENTCONDITION IMPROVES AND PATIENT RESPONDS TO [place].CM TO FOLLOW. Addendum: 03/21/23 at 1028 by GEE MCCOLLUM CM FAXED ALL PAPERWORK TO [facility]. WILL FOLLOW UP WITH UPDATES Addendum: 03/21/23 at 1157 by GEE MCCOLLUM CM RECEIVED ORDER FOR PATIENT TO GO BACK TO [facility] FOR CONTINUE OF CARE. FAXED ALL PAPERWORK TO [facility]. SPOKE WITH GILBERTO AT [facility] LOCATED AT [address] [place] [address]. PATIENT WILL BE GOING TO ROOM [address] WOODS. TRANSPORTATION WAS ARRANGED WITH [facility] WITH A 1500 SOLE SKIVER TIME. WILL OBTAIN COMPANY INFORMATION WHEN CONFIRMATION FAX COMES BACK. CHARGE NURSE LYNN IS AWARE OF THE ABOVE INFO WELL PTN EDDA WHO DIDN'T ANSWER BUT WAS LEFT A MESSAGE.
[2023-03-20 16:00] VITALS: BP 117/77; PULSE 89; RESP 18; TEMP 97.8; O2SAT 96
--- NOTE | 2023-03-20 19:35 | NUR ---
RECEIVED ENDORSEMENT FROM DAY SHIFT NURSE. PT IS ON BED AWAKE, ALERT AND VERBALLY RESPONSIVE IN [place] LANGUAGE. IV SITE IS ON LEFT WRIST 20G AND IS SALINE LOCK. SUPRA PUBIC CATHETER IS INTACT AND PATENT.
--- NOTE | 2023-03-20 19:40 | NUR ---
USE LEADITE HEATER LANGUAGE IN [place], CAROLANNYANELY LEADITE HEATER ID #[id number]. PT VERBALIZED WANTS TO GO [facility], [facility] IS IN THE FACILITY WHERE HE LIVES PREVIOUSLY.
[2023-03-20 20:00] VITALS: BP 118/77; PULSE 75; PULSE 89; RESP 18; TEMP 98.9; O2SAT 95
[2023-03-20] MEDS ORDERED: TAMS0.4C96 PO (22:54)
[2023-03-21 04:00] VITALS: BP 128/76; PULSE 61; RESP 18; TEMP 97.8; O2SAT 99
[2023-03-21 06:31] LABS: BASOPHILS % (AUTO) 1.1 % (0.0-2.0); EOSINOPHILS # (AUTO) 0.2 K/uL (0-0.4); EOSINOPHILS % (AUTO) 3.9 % (0.0-4.0); HEMATOCRIT 40.5 % (36-52); LYMPHOCYTES # (AUTO) 1.3 K/uL (2.0-11.5); LYMPHOCYTES % (AUTO) 28.2 % (20.5-51.1); MEAN CORPUSCULAR HEMOGLOBIN 35 pg (27-31); MEAN CORPUSCULAR HGB CONC 35 g/dL (33-37); MEAN CORPUSCULAR VOLUME 100.3 fL (80-94); MONOCYTES # (AUTO) 0.5 K/uL (0.8-1.0); MONOCYTES % (AUTO) 10.6 % (1.7-9.3); NEUTROPHILS # (AUTO) 2.5 K/uL (1.8-7.7); NEUTROPHILS % (AUTO) 56.2 % (42.2-75.2); PLATELET COUNT (AUTO) 188 K/uL (140-450); RED BLOOD CELL COUNT(AUTO) 4.04 MIL/uL (4.20-6.10); RED CELL DISTRIBUTION WIDTH 13.2 % (11.6-13.7); WHITE BLOOD COUNT (AUTO) 4.5 K/uL (4.8-10.8)
[2023-03-21 06:43] LABS: ALBUMIN 3.3 g/dL (3.4-5.0); ANION GAP 9.5 (8-16); ASPARTATE AMINOTRANSFERASE 23 U/L (15-37); CARBON DIOXIDE 30.8 mmol/L (21-32); CHLORIDE 104 mmol/L (98-107); CREATININE 0.8 mg/dL (0.6-1.3); GLUCOSE 111 mg/dL (74-106); POTASSIUM 3.3 mmol/L (3.5-5.1); SODIUM SERUM 141 mmol/L (136-145); TOTAL BILIRUBIN 0.4 mg/dL (0.0-1.0); UREA NITROGEN, BLOOD 11 mg/dL (7-18)
[2023-03-21 08:00] VITALS: PULSE 70; RESP 18; TEMP 97.4; O2SAT 98
[2023-03-21] MEDS ORDERED: CEFD300C3 PO (10:49)
[2023-03-21] MEDS: PANTOPRAZOLE 40 MG TABEC PO SCH (11:05)
[2023-03-21] MEDS: CARBIDOPA/LEVODOPA 25/250 MG 1 TAB PO SCH ×2 (11:11→12:00)
[2023-03-21] MEDS ORDERED: POTASSIUM CHLORIDE 10 MEQ TABER PO SCH (12:35)
--- NOTE | 2023-03-21 13:12 | NUR ---
Gave morning dose at 1100 due to being a late call and patient prioritization. Held 1200 dose d/t med administered times are too close. confirmed with pharmacy.
[2023-03-21 14:31] VITALS: BP 138/83; PULSE 98
--- NOTE | 2023-03-21 15:32 | NUR ---
Patient discharged to [facility] via non acute transport. Report given to Sneha, Patient stable AOx4 bulgarian speaking understands a little telugu. DC'd IV and emptied [place] bag. Patient signed own dc paperwork. denies pain and skin intact. no further complaints.
--- NOTE | 2023-03-21 16:08 | NUR ---
P.T. NOTES P.T. EVAL COMPLETED; REFER TO EVAL FOR DETAILS.
== END 2023-03-21 15:44 | DRG 682 ==
LOC: MED 20:53 → MTU 22:35
PROVIDERS: ADMIT Student in an Organized Health Care Education/Training Program; ATTEND Student in an Organized Health Care Education/Training Program
DX: N17.0 Acute kidney failure with tubular necrosis (principal); E43 Unspecified severe protein-calorie malnutrition; N39.0 Urinary tract infection, site not specified; Z68.1 Body mass index [BMI] 19.9 or less, adult; D63.8 Anemia in other chronic diseases classified elsewhere; N18.31 Chronic kidney disease, stage 3a; I12.9 Hypertensive chronic kidney disease with stage 1 through stage 4 chronic kidney disease, or unspecified chronic kidney disease; D75.89 Other specified diseases of blood and blood-forming organs; N40.0 Benign prostatic hyperplasia without lower urinary tract symptoms; G20 Parkinson's disease; E87.6 Hypokalemia; E86.0 Dehydration; F02.80 Dementia in other diseases classified elsewhere, unspecified severity, without behavioral disturbance, psychotic disturbance, mood disturbance, and anxiety; K21.9 Gastro-esophageal reflux disease without esophagitis; E78.5 Hyperlipidemia, unspecified; Z90.49 Acquired absence of other specified parts of digestive tract
CPT/HCPCS: 36415; 51702; 76770; 80048; 80053; 81001; 83605; 84154; 85025; 87040; 87081; 87086; 92526; 96365; 97112; 97530; 99291; J0696; J2001; J3480; J7030; J7060; Q0092

== ENCOUNTER 2023-08-28 09:39 | Emergency (ER) | payer OTHER ==
[~2023-08-28] VITALS: Ht 167.6 cm; Wt 65.8 kg
[~2023-08-28 09:39] MED LIST changes: +CEFD300C3 PO; -SULF-59 PO; +TAMS0.4C96 PO
[2023-08-28 10:09] VITALS: BP 130/98; PULSE 91; RESP 18; TEMP 98.1; O2SAT 99
[2023-08-28 11:26] LABS: APPEARANCE,URINE CLOUDY (CLEAR); BILIRUBIN,URINE NEGATIVE (NEGATIVE); BLOOD, URINE 2+ (NEGATIVE); COLOR,URINE OTHER (YELLOW); LEUKOCYTE ESTERASE ,URINE 3+ (NEGATIVE); NITRITE, URINE POSITIVE (NEGATIVE); PH,URINE 7.5 (5.0-9.0); PROTEIN,URINE TRACE (NEGATIVE); UGLUCOSE NEGATIVE (NEGATIVE); UROBILINOGEN,URINE 0.2 EU/dL (0.2 - 1)
[2023-08-28 11:35] LABS: BACTERIA,URINE >30 (MANY) /HPF (None Seen); RBC,URINE 11-20 (MOD) /HPF (0-5); SQUAMOUS EPITHELIAL CELL,UR 0-3 (FEW) /LPF (0-3 (FEW)); WBC,URINE 16-25 (MOD) /HPF (0-5)
[2023-08-28 17:06] VITALS: O2SAT 99
== END 2023-08-28 16:47 | disposition home or self-care (01) ==
LOC: MED 09:39
DX: R33.9 Retention of urine, unspecified (principal); T83.098A Other mechanical complication of other urinary catheter, initial encounter; N39.0 Urinary tract infection, site not specified; F03.90 Unspecified dementia, unspecified severity, without behavioral disturbance, psychotic disturbance, mood disturbance, and anxiety; I10 Essential (primary) hypertension; N40.0 Benign prostatic hyperplasia without lower urinary tract symptoms; Y92.89 Other specified places as the place of occurrence of the external cause
CPT/HCPCS: 51701; 81001; 87086; 99284

== ENCOUNTER 2023-09-26 07:48 | Emergency (ER) | payer OTHER ==
[~2023-09-26] VITALS: Ht 165.1 cm; Wt 69.4 kg
[2023-09-26 07:57] VITALS: BP 108/78; PULSE 55; RESP 17; TEMP 97.7; O2SAT 98
[2023-09-26 09:47] LABS: BILIRUBIN,URINE NEGATIVE (NEGATIVE); BLOOD, URINE 3+ (NEGATIVE); COLOR,URINE YELLOW (YELLOW); LEUKOCYTE ESTERASE ,URINE 1+ (NEGATIVE); NITRITE, URINE NEGATIVE (NEGATIVE); PROTEIN,URINE 1+ (NEGATIVE); UGLUCOSE NEGATIVE (NEGATIVE); UROBILINOGEN,URINE 0.2 EU/dL (0.2 - 1)
[2023-09-26 10:10] LABS: WBC,URINE 0-5 /HPF (0-5)
[2023-09-26 10:11] LABS: APPEARANCE,URINE SLIGHTLY HAZY (CLEAR); BACTERIA,URINE FEW /HPF (None Seen); SQUAMOUS EPITHELIAL CELL,UR 0-3 (FEW) /LPF (0-3 (FEW))
[2023-09-26] MEDS ORDERED: SULF-59 PO (10:13)
[2023-09-26] MEDS ORDERED: DOCU1TAB73 PO (10:13)
[2023-09-26] MEDS ORDERED: [UNRECOGNIZED DRUG - CODE] RC (10:13)
[2023-09-26] MEDS: SENNA 8.6 MG TAB PO STA (10:40)
[2023-09-26] MEDS: DOCUSATE SODIUM 100 MG GELCAP PO STA (10:40)
[2023-09-26] MEDS: GLYCERIN ADULT 1 SUPP RC ONE (10:41)
[2023-09-26] MEDS: SODIUM PHOSPHATE 118 ML ENEM RC ONE (10:41)
[2023-09-26 13:45] VITALS: BP 156/64; PULSE 69; RESP 16; O2SAT 99
== END 2023-09-26 12:57 | disposition home or self-care (01) ==
LOC: MED 07:48
DX: N39.0 Urinary tract infection, site not specified (principal); T83.098A Other mechanical complication of other urinary catheter, initial encounter; K56.41 Fecal impaction; R33.9 Retention of urine, unspecified; Z79.899 Other long term (current) drug therapy
CPT/HCPCS: 51705; 74021; 81001; 87086; 99285

== ENCOUNTER 2023-10-20 22:06 | Emergency (ER) | payer OTHER ==
[~2023-10-20] VITALS: Ht 172.7 cm; Wt 63.5 kg
[~2023-10-20 22:06] MED LIST changes: +DOCU1TAB73 PO; +SULF-59 PO; +[UNRECOGNIZED DRUG - CODE] RC
[2023-10-20 22:10] VITALS: BP 115/75; PULSE 98; RESP 14; TEMP 98; O2SAT 98
[2023-10-21 02:01] VITALS: O2SAT 98
[2023-10-21 03:29] VITALS: BP 136/86; PULSE 89; RESP 16; O2SAT 100
== END 2023-10-21 07:02 ==
LOC: MED 22:06
DX: R10.30 Lower abdominal pain, unspecified (principal); T83.098A Other mechanical complication of other urinary catheter, initial encounter; I10 Essential (primary) hypertension; F03.90 Unspecified dementia, unspecified severity, without behavioral disturbance, psychotic disturbance, mood disturbance, and anxiety; K21.9 Gastro-esophageal reflux disease without esophagitis; Z79.899 Other long term (current) drug therapy
CPT/HCPCS: 51705; 99285

== ENCOUNTER 2023-12-11 02:40 | Inpatient (IN) | payer OTHER ==
[~2023-12-11] VITALS: Ht 175.3 cm; Wt 65.8 kg
[~2023-12-11 02:40] MED LIST changes: -DOCU1TAB73 PO; +SENN1TAB80 PO; +[UNRECOGNIZED DRUG - CODE] RC; -[UNRECOGNIZED DRUG - CODE] RC
[2023-12-11 02:50] VITALS: BP 124/84; PULSE 97; RESP 20; TEMP 98; O2SAT 94
[2023-12-11 02:55] VITALS: O2SAT 96
[2023-12-11 03:50] LABS: BASOPHILS % (AUTO) 0.2 % (0.0-2.0); EOSINOPHILS # (AUTO) 0.1 K/uL (0-0.4); EOSINOPHILS % (AUTO) 0.5 % (0.0-4.0); HEMOGLOBIN 16.3 g/dL (12.0-18.0); LYMPHOCYTES # (AUTO) 1.5 K/uL (2.0-11.5); LYMPHOCYTES % (AUTO) 16.1 % (20.5-51.1); MEAN CORPUSCULAR HEMOGLOBIN 35 pg (27-31); MEAN CORPUSCULAR HGB CONC 35 g/dL (33-37); MEAN CORPUSCULAR VOLUME 102.1 fL (80-94); MONOCYTES # (AUTO) 0.7 K/uL (0.8-1.0); NEUTROPHILS # (AUTO) 7.2 K/uL (1.8-7.7); NEUTROPHILS % (AUTO) 76.2 % (42.2-75.2); PLATELET COUNT (AUTO) 220 K/uL (140-450); RED CELL DISTRIBUTION WIDTH 14.5 % (11.6-13.7); WHITE BLOOD COUNT (AUTO) 9.5 K/uL (4.8-10.8)
[2023-12-11 04:21] LABS: ALANINE AMINOTRANSFERASE 4 U/L (12-78); ALBUMIN 4.3 g/dL (3.4-5.0); ALKALINE PHOSPHATASE 122 U/L (50-136); ANION GAP 14.8 (8-16); ASPARTATE AMINOTRANSFERASE 20 U/L (15-37); CALCIUM 9.8 mg/dL (8.5-10.1); CARBON DIOXIDE 28.2 mmol/L (21-32); CHLORIDE 101 mmol/L (98-107); CREATININE 0.9 mg/dL (0.6-1.3); GLUCOSE 129 mg/dL (74-106); LIPASE 44 U/L (16-77); SODIUM SERUM 140 mmol/L (136-145); TOTAL BILIRUBIN 0.8 mg/dL (0.0-1.0); TOTAL PROTEIN, SERUM 8.4 g/dL (6.4-8.2); UREA NITROGEN, BLOOD 18 mg/dL (7-18)
[2023-12-11 04:29] LABS: APPEARANCE,URINE CLEAR (CLEAR); BILIRUBIN,URINE NEGATIVE (NEGATIVE); BLOOD, URINE NEGATIVE (NEGATIVE); COLOR,URINE YELLOW (YELLOW); LEUKOCYTE ESTERASE ,URINE 3+ (NEGATIVE); NITRITE, URINE POSITIVE (NEGATIVE); PROTEIN,URINE NEGATIVE (NEGATIVE); UGLUCOSE NEGATIVE (NEGATIVE); UROBILINOGEN,URINE 0.2 EU/dL (0.2 - 1)
[2023-12-11 04:35] LABS: BACTERIA,URINE >30 (MANY) /HPF (None Seen); MUCUS,URINE 1+ /LPF (None Seen); RBC,URINE 0-5 /HPF (0-5); SQUAMOUS EPITHELIAL CELL,UR 0-3 (FEW) /LPF (0-3 (FEW))
[2023-12-11] MEDS: PIPERACILLIN/TAZOBACTAM 4.5 GM in DEXTROSE 5% 100 ML IV ONE (05:10)
[2023-12-11] MEDS ORDERED: PIPERACILLIN/TAZOBACTAM 4.5 GM VIAL IV ONE (05:39)
[2023-12-11] MEDS: NACL 0.9% 500 ML IV ONE (06:18)
[2023-12-11] MEDS ORDERED: AMLO10TA PO (06:21)
[2023-12-11] MEDS ORDERED: ACET-2619 PO (06:21)
[2023-12-11] MEDS ORDERED: ASCO500T95 PO (06:21)
[2023-12-11] MEDS ORDERED: BISA-279 RC (06:21)
[2023-12-11] MEDS ORDERED: MAGN400S60 PO (06:21)
[2023-12-11] MEDS ORDERED: DOCU-299 PO (06:21)
[2023-12-11] MEDS ORDERED: GEMF600T5 PO (06:21)
[2023-12-11 06:22] VITALS: O2SAT 95
[2023-12-11] MEDS ORDERED: ONDANSETRON 4 MG/2 ML VIAL IVP PRN (06:40)
[2023-12-11] MEDS ORDERED: ACETAMINOPHEN 325 MG TAB PO PRN (06:40)
[2023-12-11] MEDS ORDERED: MORPHINE SULFATE 2 MG/ML SYR IVP PRN (06:40)
[2023-12-11] MEDS ORDERED: HYDROcodone/APAP 5/325 MG 1 TAB TAB PO PRN (06:40)
[2023-12-11] MEDS ORDERED: bisacodyL 10 MG SUPP RC PRN (06:50)
[2023-12-11] MEDS ORDERED: MAGNESIUM HYDROXIDE 2400 MG/30 ML UDC PO PRN (06:50)
[2023-12-11] MEDS ORDERED: DOCUSATE SOD/SENNA 50/8.6 MG 1 TAB PO PRN (06:50)
[2023-12-11] MEDS ORDERED: LEVODOPA PO SCH (09:00)
[2023-12-11] MEDS ORDERED: CARBIDOPA PO SCH (09:00)
[2023-12-11] MEDS: ERTAPENEM SODIUM 1,000 MG in NACL 0.9% 50 ML IV SCH (09:50)
[2023-12-11] MEDS: ASCORBIC ACID 500 MG TAB PO SCH (12:25)
[2023-12-11] MEDS: gemfibroziL 600 MG TAB PO SCH (12:27)
[2023-12-11] MEDS: DOCUSATE SODIUM 100 MG GELCAP PO SCH (12:27)
[2023-12-11] MEDS: METOPROLOL 25 MG TAB PO SCH (12:37)
[2023-12-11] MEDS: amLODIPine 5 MG TAB PO SCH (12:38)
[2023-12-11] MEDS: CARBIDOPA/LEVODOPA 25/250 MG 1 TAB PO SCH (13:34)
[2023-12-11 20:20] VITALS: PULSE 83; RESP 19; O2SAT 99
[2023-12-11] MEDS: TAMSULOSIN 0.4 MG CAP PO SCH (21:26)
[2023-12-11 23:08] VITALS: BP 116/75; PULSE 83; RESP 18; TEMP 98.5; O2SAT 99
[2023-12-12 06:52] LABS: BASOPHILS % (AUTO) 0.4 % (0.0-2.0); EOSINOPHILS # (AUTO) 0.2 K/uL (0-0.4); EOSINOPHILS % (AUTO) 2.6 % (0.0-4.0); HEMATOCRIT 42.9 % (36-52); HEMOGLOBIN 14.8 g/dL (12.0-18.0); LYMPHOCYTES # (AUTO) 1.8 K/uL (2.0-11.5); LYMPHOCYTES % (AUTO) 25.1 % (20.5-51.1); MEAN CORPUSCULAR HEMOGLOBIN 36 pg (27-31); MEAN CORPUSCULAR HGB CONC 35 g/dL (33-37); MEAN CORPUSCULAR VOLUME 102.6 fL (80-94); MONOCYTES # (AUTO) 0.9 K/uL (0.8-1.0); MONOCYTES % (AUTO) 11.8 % (1.7-9.3); NEUTROPHILS # (AUTO) 4.3 K/uL (1.8-7.7); NEUTROPHILS % (AUTO) 60.1 % (42.2-75.2); PLATELET COUNT (AUTO) 205 K/uL (140-450); RED BLOOD CELL COUNT(AUTO) 4.18 MIL/uL (4.20-6.10); RED CELL DISTRIBUTION WIDTH 14.3 % (11.6-13.7); WHITE BLOOD COUNT (AUTO) 7.2 K/uL (4.8-10.8)
[2023-12-12 07:13] LABS: ASPARTATE AMINOTRANSFERASE 6 U/L (15-37); CHLORIDE 103 mmol/L (98-107); POTASSIUM 5.2 mmol/L (3.5-5.1); SODIUM SERUM 141 mmol/L (136-145); TOTAL BILIRUBIN 0.5 mg/dL (0.0-1.0); UREA NITROGEN, BLOOD 0 mg/dL (7-18)
[2023-12-12 07:47] LABS: ALANINE AMINOTRANSFERASE 7 U/L (12-78); ALBUMIN 3.7 g/dL (3.4-5.0); ALKALINE PHOSPHATASE 114 U/L (50-136); ANION GAP 15.4 (8-16); CALCIUM 9.5 mg/dL (8.5-10.1); CARBON DIOXIDE 27.8 mmol/L (21-32); CREATININE 0.9 mg/dL (0.6-1.3); GLUCOSE 100 mg/dL (74-106); PHOSPHORUS 4.4 mg/dL (2.5-4.9); TOTAL PROTEIN, SERUM 7.4 g/dL (6.4-8.2)
[2023-12-12 08:31] LABS: MAGNESIUM 2.5 mg/dL (1.8-2.4)
[2023-12-12 19:49] VITALS: PULSE 82; RESP 18; O2SAT 99
[2023-12-12 19:53] VITALS: TEMP 98.5
[2023-12-13] VITALS: BP 98/47; PULSE 64; RESP 17; TEMP 97.6; O2SAT 96
[2023-12-13 05:30] LABS: BASOPHILS % (AUTO) 0.8 % (0.0-2.0); EOSINOPHILS # (AUTO) 0.2 K/uL (0-0.4); HEMATOCRIT 40.6 % (36-52); LYMPHOCYTES # (AUTO) 1.8 K/uL (2.0-11.5); LYMPHOCYTES % (AUTO) 33.1 % (20.5-51.1); MEAN CORPUSCULAR HEMOGLOBIN 35 pg (27-31); MEAN CORPUSCULAR HGB CONC 34 g/dL (33-37); MEAN CORPUSCULAR VOLUME 102.5 fL (80-94); MONOCYTES # (AUTO) 0.6 K/uL (0.8-1.0); MONOCYTES % (AUTO) 11.1 % (1.7-9.3); NEUTROPHILS # (AUTO) 2.9 K/uL (1.8-7.7); PLATELET COUNT (AUTO) 184 K/uL (140-450); RED BLOOD CELL COUNT(AUTO) 3.96 MIL/uL (4.20-6.10); RED CELL DISTRIBUTION WIDTH 14.3 % (11.6-13.7); WHITE BLOOD COUNT (AUTO) 5.6 K/uL (4.8-10.8)
[2023-12-13 05:53] LABS: ALANINE AMINOTRANSFERASE 5 U/L (12-78); ALBUMIN 3.5 g/dL (3.4-5.0); ALKALINE PHOSPHATASE 108 U/L (50-136); ANION GAP 11.7 (8-16); ASPARTATE AMINOTRANSFERASE 15 U/L (15-37); CALCIUM 9.3 mg/dL (8.5-10.1); CARBON DIOXIDE 29.5 mmol/L (21-32); CHLORIDE 104 mmol/L (98-107); CREATININE 0.9 mg/dL (0.6-1.3); GLUCOSE 94 mg/dL (74-106); POTASSIUM 4.2 mmol/L (3.5-5.1); SODIUM SERUM 141 mmol/L (136-145); TOTAL BILIRUBIN 0.7 mg/dL (0.0-1.0); TOTAL PROTEIN, SERUM 7.1 g/dL (6.4-8.2); UREA NITROGEN, BLOOD 23 mg/dL (7-18)
[2023-12-13 08:00] VITALS: BP 98/47; PULSE 76; PULSE 82; RESP 18; TEMP 97; TEMP 97.4; O2SAT 96; O2SAT 99
[2023-12-13 15:19] VITALS: O2SAT 97
[2023-12-13 16:00] VITALS: BP 109/58; PULSE 56; RESP 18; TEMP 97.7; O2SAT 96
[2023-12-13 20:00] VITALS: PULSE 68; RESP 18; TEMP 97.2; O2SAT 94
[2023-12-14] VITALS: BP 104/66; PULSE 66; RESP 18; TEMP 97.5; O2SAT 95
[2023-12-14 05:26] LABS: ALANINE AMINOTRANSFERASE 5 U/L (12-78); ALBUMIN 3.5 g/dL (3.4-5.0); ALKALINE PHOSPHATASE 107 U/L (50-136); ANION GAP 10.7 (8-16); ASPARTATE AMINOTRANSFERASE 17 U/L (15-37); BASOPHILS % (AUTO) 0.8 % (0.0-2.0); CARBON DIOXIDE 31.1 mmol/L (21-32); CHLORIDE 105 mmol/L (98-107); CREATININE 0.8 mg/dL (0.6-1.3); EOSINOPHILS # (AUTO) 0.1 K/uL (0-0.4); EOSINOPHILS % (AUTO) 2.5 % (0.0-4.0); GLUCOSE 91 mg/dL (74-106); HEMATOCRIT 41.6 % (36-52); HEMOGLOBIN 14.1 g/dL (12.0-18.0); LYMPHOCYTES # (AUTO) 1.9 K/uL (2.0-11.5); LYMPHOCYTES % (AUTO) 34.2 % (20.5-51.1); MEAN CORPUSCULAR HEMOGLOBIN 35 pg (27-31); MEAN CORPUSCULAR HGB CONC 34 g/dL (33-37); MEAN CORPUSCULAR VOLUME 102.8 fL (80-94); MONOCYTES # (AUTO) 0.6 K/uL (0.8-1.0); MONOCYTES % (AUTO) 11.1 % (1.7-9.3); NEUTROPHILS # (AUTO) 2.9 K/uL (1.8-7.7); NEUTROPHILS % (AUTO) 51.4 % (42.2-75.2); PLATELET COUNT (AUTO) 200 K/uL (140-450); POTASSIUM 3.8 mmol/L (3.5-5.1); RED BLOOD CELL COUNT(AUTO) 4.04 MIL/uL (4.20-6.10); RED CELL DISTRIBUTION WIDTH 14.2 % (11.6-13.7); SODIUM SERUM 143 mmol/L (136-145); TOTAL BILIRUBIN 0.5 mg/dL (0.0-1.0); TOTAL PROTEIN, SERUM 7.1 g/dL (6.4-8.2); UREA NITROGEN, BLOOD 21 mg/dL (7-18); WHITE BLOOD COUNT (AUTO) 5.6 K/uL (4.8-10.8)
[2023-12-14] MEDS ORDERED: ERTA1VIA2 IV (07:31)
[2023-12-14 12:52] VITALS: BP 102/62; PULSE 75; RESP 18; TEMP 98.3
[2023-12-14 16:34] VITALS: O2SAT 95
== END 2023-12-14 16:55 | DRG 699 ==
LOC: MED 02:40 → MMU 06:44 → MTU 19:40
PROVIDERS: ADMIT Internal Medicine; ATTEND Internal Medicine
DX: T83.038A Leakage of other urinary catheter, initial encounter (principal); N39.0 Urinary tract infection, site not specified; G30.9 Alzheimer's disease, unspecified; F02.80 Dementia in other diseases classified elsewhere, unspecified severity, without behavioral disturbance, psychotic disturbance, mood disturbance, and anxiety; I10 Essential (primary) hypertension; Y83.8 Other surgical procedures as the cause of abnormal reaction of the patient, or of later complication, without mention of misadventure at the time of the procedure; N40.0 Benign prostatic hyperplasia without lower urinary tract symptoms; Z79.899 Other long term (current) drug therapy; B96.4 Proteus (mirabilis) (morganii) as the cause of diseases classified elsewhere
CPT/HCPCS: 36415; 80053; 81001; 83690; 83735; 84100; 85025; 87081; 87086; 87186; 96361; 96365; 97110; 97112; 97163-GP; 97530; 99285; J1335; J2543

== ENCOUNTER 2024-02-17 02:35 | Emergency (ER) | payer OTHER ==
[~2024-02-17] VITALS: Ht 167.6 cm; Wt 44.5 kg
[~2024-02-17 02:35] MED LIST changes: +ACET-2619 PO; +AMLO10TA PO; +ASCO500T95 PO; +BISA-279 RC; -CEFD300C3 PO; +DOCU-299 PO; +ERTA1VIA2 IV; +GEMF600T5 PO; +MAGN400S60 PO; -PYR100 PO; -SULF-59 PO
[2024-02-17 02:38] VITALS: BP 142/100; PULSE 85; RESP 14; TEMP 99.1; O2SAT 99
[2024-02-17 02:51] VITALS: O2SAT 97
[2024-02-17 09:14] VITALS: BP 107/65; PULSE 67; RESP 13; TEMP 99; O2SAT 96
== END 2024-02-17 09:14 | disposition home or self-care (01) ==
LOC: MED 02:35
DX: T83.090A Other mechanical complication of cystostomy catheter, initial encounter (principal); K21.9 Gastro-esophageal reflux disease without esophagitis; F03.90 Unspecified dementia, unspecified severity, without behavioral disturbance, psychotic disturbance, mood disturbance, and anxiety; Z79.899 Other long term (current) drug therapy
CPT/HCPCS: 51705; 99285

== ENCOUNTER 2024-02-21 20:31 | Emergency (ER) | payer OTHER ==
[~2024-02-21] VITALS: Ht 188 cm; Wt 54.4 kg
[2024-02-21 20:31] VITALS: BP 118/78; PULSE 100; RESP 17; TEMP 97.7; O2SAT 95
[2024-02-21 22:02] VITALS: O2SAT 96
[2024-02-21 22:19] LABS: BASOPHILS % (AUTO) 0.4 % (0.0-2.0); EOSINOPHILS # (AUTO) 0.1 K/uL (0-0.4); EOSINOPHILS % (AUTO) 0.9 % (0.0-4.0); HEMATOCRIT 48.7 % (36-52); HEMOGLOBIN 16.7 g/dL (12.0-18.0); LYMPHOCYTES # (AUTO) 1.5 K/uL (2.0-11.5); LYMPHOCYTES % (AUTO) 15.9 % (20.5-51.1); MEAN CORPUSCULAR HEMOGLOBIN 34 pg (27-31); MEAN CORPUSCULAR HGB CONC 34 g/dL (33-37); MEAN CORPUSCULAR VOLUME 100.4 fL (80-94); MONOCYTES # (AUTO) 0.6 K/uL (0.8-1.0); MONOCYTES % (AUTO) 6.9 % (1.7-9.3); NEUTROPHILS % (AUTO) 75.9 % (42.2-75.2); PLATELET COUNT (AUTO) 220 K/uL (140-450); RED BLOOD CELL COUNT(AUTO) 4.85 MIL/uL (4.20-6.10); RED CELL DISTRIBUTION WIDTH 12.7 % (11.6-13.7); WHITE BLOOD COUNT (AUTO) 9.2 K/uL (4.8-10.8)
[2024-02-21 22:27] LABS: ANION GAP 14.8 (8-16); CALCIUM 9.3 mg/dL (8.5-10.1); CARBON DIOXIDE 26.2 mmol/L (21-32); CHLORIDE 100 mmol/L (98-107); CREATININE 0.8 mg/dL (0.6-1.3); GLUCOSE 156 mg/dL (74-106); SODIUM SERUM 137 mmol/L (136-145); UREA NITROGEN, BLOOD 23 mg/dL (7-18)
[2024-02-22 00:47] VITALS: O2SAT 96
[2024-02-22 01:46] LABS: APPEARANCE,URINE CLEAR (CLEAR); BILIRUBIN,URINE NEGATIVE (NEGATIVE); BLOOD, URINE 2+ (NEGATIVE); COLOR,URINE YELLOW (YELLOW); LEUKOCYTE ESTERASE ,URINE 3+ (NEGATIVE); NITRITE, URINE POSITIVE (NEGATIVE); PH,URINE 8.5 (5.0-9.0); PROTEIN,URINE 1+ (NEGATIVE); UGLUCOSE NEGATIVE (NEGATIVE); UROBILINOGEN,URINE 0.2 EU/dL (0.2 - 1)
[2024-02-22 01:48] LABS: BACTERIA,URINE >30 (MANY) /HPF (None Seen); MUCUS,URINE 1+ /LPF (None Seen); SQUAMOUS EPITHELIAL CELL,UR 0-3 (FEW) /LPF (0-3 (FEW))
[2024-02-22] MEDS ORDERED: CEPH-588 PO (01:57)
[2024-02-22] MEDS ORDERED: cefTRIAXone 1,000 MG VIAL ONE (02:09)
[2024-02-22 03:39] VITALS: O2SAT 98
[2024-02-22 05:13] VITALS: BP 112/70; PULSE 63; RESP 14; O2SAT 99
== END 2024-02-22 06:00 ==
LOC: MED 20:31
DX: T83.018A Breakdown (mechanical) of other urinary catheter, initial encounter (principal); N39.0 Urinary tract infection, site not specified; I10 Essential (primary) hypertension; K21.9 Gastro-esophageal reflux disease without esophagitis; F03.90 Unspecified dementia, unspecified severity, without behavioral disturbance, psychotic disturbance, mood disturbance, and anxiety; Z96.0 Presence of urogenital implants; Z79.1 Long term (current) use of non-steroidal anti-inflammatories (NSAID); Z79.899 Other long term (current) drug therapy; Z79.2 Long term (current) use of antibiotics
CPT/HCPCS: 36415; 51705; 80048; 81001; 85025; 87086; 87186; 96365; 99285; J0696